=== PATIENT | female | born 1940 | race Caucasian/White ===

== ENCOUNTER → 2018-04-14 09:55 | Outpatient (POV) | payer MEDICARE, OTHER, SELFPAY ==
[2018-04-14 10:12] VITALS: BP 121/64; PULSE 58; RESP 18; O2SAT 98
--- NOTE | 2018-04-14 10:48 | XR_ITS ---
XR knee LT 3V HISTORY: ITS.REASON: LT KNEE PAIN ORDERING PHYSICIAN: Rere Castellanos PATIENT AGE: 77 years COMPARISON: None FINDINGS: No fracture or dislocation. No lytic or blastic change. Normal mineralization. No significant arthritic changes evident. No other significant findings IMPRESSION: Negative Knee
--- NOTE | 2018-04-14 12:48 | HMH.PMCON ---
Assessment and Plan (1) Left knee pain Current visit: Yes Status: Chronic Category: Medical Code(s): M25.562 - Pain in left knee - Assessment and plan all Dx Assessment and Plan for all problems:: We will order an x-ray of her left knee to discern pathology. We will also set her up for left knee injection. Patient is to continue her anti-inflammatories until her injection. I told the patient that she was welcome to go back to work as long as she takes it easy and does not over exert herself. Patient is to avoid mopping and sweeping or any other motion that may increase her knee pain. I will follow-up with the patient after her injection and reassess her symptoms at that time. This note was dictated using voice recognition software and may contain errors or omissions HPI - Data of Consult Consult date: 04/14/18 Requesting Physician: Rere Castellanos APRN Primary Care Provider: Sudhakar Smith MD Family Provider: Sudhakar Smith MD - Consult Narrative Reason for consult: Knee pain History of present illness: Ms. Soto is a 77 year old female who presents for consultation in regards to her left knee pain. Patient fell at several weeks back and had an increase in her back and buttock pain however that is all resolved. Patient states that all of her pain is in her left knee. Patient does not have any x-rays of her knee we will order some. Patient states she did try a friend's knee brace however it was not very helpful for her. Patient and I discussed anti-inflammatories. Patient has not had any injections in her knee. Patient states that her pain is a 5 out of 10 today. Patient would like to return to work as soon as possible. 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 CC: Rere Castellanos APRN [facility] History I have reviewed the patient's past medical history: Yes Medical History: Reports:: Anxiety, Hypertension, Osteoporosis Other Medical History: Reports: Arthritis, Osteoporosis - *Social History Smoking Status: Never smoker Alcohol Intake: never Occupational Status: employed Housing: house - Psychiatric History Expresses thoughts of harming self/others: None Suicide Plan Description: No Plan Pschychiatric History:: Reports:: Anxiety Review of Systems - Review of Systems ROS General: no recent weight change, no fever, no sleep disturbances Respiratory: no cough, no shortness of air, no recurring pulmonary infections Cardiovascular/Peripheral Vascular: No chest pain, No palpitations, no edema, no shortness of breath. Gastrointestinal: no incontinence, normal bowel movements reported Genitourinary: no incontinence Musculoskeletal: Knee pain Psychiatric: normal mood/ affect Neurological: [denies weakness in extremities], [denies balance issues] Meds Home Medications Medication Instructions Recorded Confirmed Type ALPRAZolam [Alprazolam 0.25mg 0.25 mg PO NEEDED PRN 04/01/18 04/01/18 History Tab] Amlodipine Besylate [Amlodipine 10 mg PO DAILY 04/01/18 04/01/18 History 10mg Tab] Metoprolol Succinate 200 mg PO DAILY 04/01/18 04/01/18 History Allergies Allergy/AdvReac Type Severity Reaction Status Date / Time alendronate sodium Allergy Unknown CHEST PAIN Verified 04/01/18 06:12 [ALENDRONATE SODIUM] metoclopramide Allergy Unknown Verified 04/01/18 06:12 [METOCLOPRAMIDE] morphine [MORPHINE] Allergy Unknown I-RASH Verified 04/01/18 06:12 Objective Vital signs: Pulse Resp BP Pulse Ox 58 L 18 121/64 98 04/14/18 10:12 04/14/18 10:12 04/14/18 10:12 04/14/18 10:12 Narrative: Physical Exam General: Alert and oriented x3, no acute distress, pleasant and cooperative, [on room air] Lungs: Resps E/U, Symmetrical chest expansion, Eyes: PERRL Musculoskeletal: Range of motion left knee somewhat guarded secondary to pain, deep tendon reflexes normal, strength in upper and lower extremities [5/5], [abnormal
--- NOTE | 2018-04-14 12:52 | P.CONS_ITS ---
Assessment and Plan (1) Left knee pain Current visit: Yes Status: Chronic Category: Medical Code(s): M25.562 - Pain in left knee - Assessment and plan all Dx Assessment and Plan for all problems:: We will order an x-ray of her left knee to discern pathology. We will also set her up for left knee injection. Patient is to continue her anti-inflammatories until her injection. I told the patient that she was welcome to go back to work as long as she takes it easy and does not over exert herself. Patient is to avoid mopping and sweeping or any other motion that may increase her knee pain. I will follow-up with the patient after her injection and reassess her symptoms at that time. This note was dictated using voice recognition software and may contain errors or omissions HPI - Data of Consult Consult date: 04/14/18 Requesting Physician: Rere Castellanos APRN Primary Care Provider: Sudhakar Smith MD Family Provider: Sudhakar Smith MD - Consult Narrative Reason for consult: Knee pain History of present illness: Ms. Soto is a 77 year old female who presents for consultation in regards to her left knee pain. Patient fell at several weeks back and had an increase in her back and buttock pain however that is all resolved. Patient states that all of her pain is in her left knee. Patient does not have any x-rays of her knee we will order some. Patient states she did try a friend's knee brace however it was not very helpful for her. Patient and I discussed anti- inflammatories. Patient has not had any injections in her knee. Patient states that her pain is a 5 out of 10 today. Patient would like to return to work as soon as possible. 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 CC: Rere Castellanos APRN [facility] History I have reviewed the patient's past medical history: Yes Medical History: Reports:: Anxiety, Hypertension, Osteoporosis Other Medical History: Reports: Arthritis, Osteoporosis - *Social History Smoking Status: Never smoker Alcohol Intake: never Occupational Status: employed Housing: house - Psychiatric History Expresses thoughts of harming self/others: None Suicide Plan Description: No Plan Pschychiatric History:: Reports:: Anxiety Review of Systems - Review of Systems ROS General: no recent weight change, no fever, no sleep disturbances Respiratory: no cough, no shortness of air, no recurring pulmonary infections Cardiovascular/Peripheral Vascular: No chest pain, No palpitations, no edema, no shortness of breath. Gastrointestinal: no incontinence, normal bowel movements reported Genitourinary: no incontinence Musculoskeletal: Knee pain Psychiatric: normal mood/ affect Neurological: [denies weakness in extremities], [denies balance issues] Meds Home Medications Medication Instructions Recorded Confirmed Type ALPRAZolam [Alprazolam 0.25mg 0.25 mg PO NEEDED PRN 04/01/18 04/01/18 History Tab] Amlodipine Besylate [Amlodipine 10 mg PO DAILY 04/01/18 04/01/18 History 10mg Tab] Metoprolol Succinate 200 mg PO DAILY 04/01/18 04/01/18 History Allergies Allergy/AdvReac Type Severity Reaction Status Date / Time alendronate sodium Allergy Unknown CHEST PAIN Verified 04/01/18 06:12 [ALENDRONATE SODIUM] metoclopramide Allergy Unknown Verified 04/01/18 06:12 [METOCLOPRAMIDE] morphine [MORPHINE] Allergy Unknown I-RASH Verified 0
== END ==
PROVIDERS: Family Provider Internal Medicine Adolescent Medicine; PCP Internal Medicine Adolescent Medicine; Visit Provider Clinical Nurse Specialist Family Health
DX: M25.562 Pain in left knee (principal)
CPT/HCPCS: 73562; 99202

== ENCOUNTER 2018-04-25 12:32 | Outpatient (POV) | payer MEDICARE, OTHER, SELFPAY ==
[2018-04-25 12:52] VITALS: BP 128/64; PULSE 64; RESP 18; TEMP 37.1; O2SAT 100; BMI 21.2
--- NOTE | 2018-04-25 13:14 | HMH.PAINSOAP ---
[facility] Pain Management SOAP Note Subjective:: This patient is a pleasant 77-year-old white female who we are seeing in regards to her left knee pain. She fell several weeks ago and had some increasing back pain left buttock pain and now she has some left knee pain. She occasionally has pain in the left back and buttock area. Most of her pain is concentrated over her left knee. We did get an x-ray of the left knee which was negative for any arthritis or fracture. Given her x-ray findings I did not see a need to do an injection of her left knee. I believe she would be better served by obtaining an MRI of the left knee as well as an MRI of her lumbar spine to discern pathology. After we obtain MRI of the left knee and lumbar spine we will have her follow-up with Dr. Ernandez for evaluation. Objective:: Alert and oriented ?3 in no acute distress. Patient does have an antalgic gait. Motor strength of the lower extremities is 5/5. She does have good range of motion of left knee. She does have tenderness over the lateral aspect of her left knee. There does not seem to be any instability. Assessment:: Left knee pain Plan:: We will obtain an MRI of the left knee. She also has occasional pain of the low back and left buttock area. We will obtain an MRI of lumbar spine. Will follow up with her after these MRIs. We may have her follow-up with Dr. Ernandez depending on results of the knee MRI.
--- NOTE | 2018-04-25 14:04 | PC.NURSE ---
PT DID NOT RECEIVE AND INJECTION AT THIS VISIT, SEE NOTE.PT DISCHARGED VIA W/C AT 1320, ACCOMPANIED BY NSG STAFF AND CHIP SOTO
== END 2018-04-25 13:20 | disposition home or self-care (01) ==
PROVIDERS: Family Provider Internal Medicine Adolescent Medicine; PCP Internal Medicine Adolescent Medicine; Visit Provider Anesthesiology
DX: M25.562 Pain in left knee (principal)
CPT/HCPCS: 99212; J1040

== ENCOUNTER → 2018-05-06 12:36 | Outpatient (CLI) | payer MEDICARE, OTHER, SELFPAY ==
--- NOTE | 2018-05-06 12:40 | MR_ITS ---
MR knee LT wo con Ordering Physician: Himanshu Masters MD Patient Age: 77 years: Female HISTORY: ITS.REASON: LOW BACK PAIN, LEFT KNEE PAIN Knee pain 8 weeks pain at patella as well as medial and lateral aspect patella. Fall 2 weeks before she started to have pain. TECHNIQUE: Multiplanar multisequence imaging 1.5 the MR. COMPARISON :Plain films left knee April 14, 2018. FINDINGS PATELLOFEMORAL JOINT. There is some chondral scuffing and chondral irregularity seen at the posterior patella-both at its its midportion as well as continuing towards the medial facet. With this there is also focal osteochondral irregularity at the medial facet of patella. A focus of chondral thinning is associated with underlying bone signal abnormality measuring 8mm transverse x 7 mm depth area.. There may be some very tiny subchondral cystic features in this subchondral area as well. Small joint effusion with fluid at suprapatellar bursa.. Also Minimal fluid seen extending lateral just beneath the lateral retinaculum overlying the lateral face of the lateral femoral condyle. Noted of doubtful additional significance.. ----- Lateral Compartment & Lateral Meniscus intact. Medial Meniscus Intact. Suspect thinning of the cartilage at medial femoral condyle towards notch, sagittal slice 10 coronal 15 The ACL and PCL are intact. The medial and lateral collateral ligaments intact. Quadriceps tendon intact with upper normal signal at insertion. Patellar tendon intact. Scant edema overlying patella tendon doubt of significance. Likely dependent edema IMPRESSION 1. Cartilage irregularities posterior patella,-at its midportion and towards medial facet. Specifically note focal osteochondral irregularity/seen beneath the medial facet of patella.- Small cartilage defect with associated underlying bone signal changes beneath 2. Small joint effusion. 3. . Medial and lateral meniscus intact. Cruciates intact 4.. Medial lateral compartment fairly well-maintained Only note suspect area probable mild focal chondral thinning at medial femoral condyle- towards notch
--- NOTE | 2018-05-06 12:40 | MR_ITS ---
MR lumbar spine wo con, MR 3-d myelogram/MRCP Ordering Physician: Himanshu Masters MD Patient Age: 77 years: Female HISTORY: ITS.REASON: LOW BACK PAIN, LEFT KNEE PAIN Left leg pain and extends lateral side of buttocks to the left hip and knee. Patient states fall 2 weeks ago for pain started TECHNIQUE: Sagittal STIR, T1, T2, axial T1 and T2. On 1.5T Siemens wide bore MRI. 3-D MR myelogram image set obtained & performed on MRI workstation. Additional sagittal thin section T2 weighted dataset obtained from this latter acquisition as well (---76 CPT) COMPARISON :04/01/2018 CT abdomen pelvis, includes spine views Plain films lumbar spine 04/01/2018 FINDINGS . The vertebral body heights are maintained. . No compression fracture. No focal lesion. Subtle patchy appearance of the marrow at that of significance but could reflect anemia Conus ends appropriately at L1. L5/S1. Disc intact. Mild Facet and ligament flavum hypertrophy L4/5. 5 mm anterior positioning of L4 on 5 vertebral bodiesReflect Mild grade 1 anterolisthesis of L4 on 5. . Prominent facet hypertrophy.. These features combine to now the spinal canal. Slight tapering the spinal canal with mild central canal stenosis evident on 3-D myelogram image set. It is slightly more evident indentation upon the left aspect of thecal sac at this level. L3/4. Asymmetric disc bulge the left with additional broad-based disc protrusion at left foramen. Moderate left foraminal and recess encroachment/stenosis. Mild facet and ligament flavum hypertrophy. Features yield mild narrowing the spinal canal with borderline to mild spinal stenosis . L2/3 mild foraminal disc bulge bilaterally. Mild facet hypertrophy. The spinal canal appearance approaching Borderline spinal stenosis L1/2. Disc intact neural foramen widely patent. T12/L1, T11/12 disc intact unremarkable. No foramen widely patent. 3-D MRI myelogram image set shows tapering and of the thecal sac most notable at L4/5 due to the facet hypertrophy, mild listhesis and trace disc bulge. That there is some slight narrowing the spinal canal IMPRESSION: ---- . Developing degenerative changes lumbar spine L3/4. Disc bulge, with Additional Disc Protrusion at the Left Foramen,.. along with mild facet hypertrophy- Yields generous encroachment at left recess and left foramen. L4/5. Mild degenerative listhesis with prominent facet hypertrophy... Features yield mild central canal stenosis, with mild/moderate bilateral foraminal encroachment; and mild central canal stenosis L2/3. Bilateral foraminal disc bulge with mild bilateral foraminal encroachment. Slight tapering of thecal sac with appearance approaching Borderline central canal stenosis at L2/3 and L3/4 .
== END ==
PROVIDERS: Family Provider Internal Medicine Adolescent Medicine; PCP Internal Medicine Adolescent Medicine; Visit Provider Anesthesiology
DX: M54.5 Low back pain (principal); M25.562 Pain in left knee
CPT/HCPCS: 72148; 73721; 76376

== ENCOUNTER → 2018-05-19 09:13 | Outpatient (POV) | payer MEDICARE, OTHER, SELFPAY ==
[2018-05-19 09:24] VITALS: BP 152/59; PULSE 58; RESP 18; O2SAT 98; BMI 20.9
--- NOTE | 2018-05-19 09:32 | HMH.PAINSOAP ---
[facility] Pain Management SOAP Note Subjective:: Patient is a pleasant 77-year-old white female who presents today for follow-up after recent MRI of left knee and low back. Patient's MRI shows a small joint effusion in her left knee along with some cartilage irregularities. Patient also has MRI of lumbar back showing degenerative disc changes. Patient states she has 0 pain today. Patient's been taking ibuprofen. Patient was taken off ibuprofen due to kidney issues in the past. I discussed with her decreasing her dose at this time. Patient would like to follow-up on an as-needed basis. ROS General: no recent weight change, no fever, no sleep disturbances Respiratory: no cough, no shortness of air, no recurring pulmonary infections Cardiovascular/Peripheral Vascular: No chest pain, No palpitations, no edema, no shortness of breath. Gastrointestinal: no incontinence, normal bowel movements reported Genitourinary: no incontinence Musculoskeletal: Knee pain at times Psychiatric: normal mood/ affect Neurological: [denies weakness in extremities], [denies balance issues] Objective:: Physical Exam General: Alert and oriented x3, no acute distress, pleasant and cooperative, [on room air] Lungs: Resps E/U, Symmetrical chest expansion, Eyes: PERRL Musculoskeletal: Flexion and extension of lumbar spine somewhat guarded secondary to pain, deep tendon reflexes normal, strength in upper and lower extremities [5/5], slightly antalgic gait noted Neurological: speech clear, adventure education teacher equal, no gross sensory deficits Assessment:: Degenerative disc disease lumbar spine with lumbar radiculopathy, left knee pain Plan:: We will follow-up with this patient on an as-needed basis. This note was dictated using voice recognition software and may contain errors or omissions
--- NOTE | 2018-05-19 09:36 | P.CONS_ITS ---
[facility] Pain Management SOAP Note Subjective:: Patient is a pleasant 77-year-old white female who presents today for follow-up after recent MRI of left knee and low back. Patient's MRI shows a small joint effusion in her left knee along with some cartilage irregularities. Patient also has MRI of lumbar back showing degenerative disc changes. Patient states she has 0 pain today. Patient's been taking ibuprofen. Patient was taken off ibuprofen due to kidney issues in the past. I discussed with her decreasing her dose at this time. Patient would like to follow-up on an as-needed basis. ROS General: no recent weight change, no fever, no sleep disturbances Respiratory: no cough, no shortness of air, no recurring pulmonary infections Cardiovascular/Peripheral Vascular: No chest pain, No palpitations, no edema, no shortness of breath. Gastrointestinal: no incontinence, normal bowel movements reported Genitourinary: no incontinence Musculoskeletal: Knee pain at times Psychiatric: normal mood/ affect Neurological: [denies weakness in extremities], [denies balance issues] Objective:: Physical Exam General: Alert and oriented x3, no acute distress, pleasant and cooperative, [ on room air] Lungs: Resps E/U, Symmetrical chest expansion, Eyes: PERRL Musculoskeletal: Flexion and extension of lumbar spine somewhat guarded secondary to pain, deep tendon reflexes normal, strength in upper and lower extremities [5/5], slightly antalgic gait noted Neurological: speech clear, hop separator equal, no gross sensory deficits Assessment:: Degenerative disc disease lumbar spine with lumbar radiculopathy, left knee pain Plan:: We will follow-up with this patient on an as-needed basis. This note was dictated using voice recognition software and may contain errors or omissions
== END ==
PROVIDERS: Family Provider Internal Medicine Adolescent Medicine; PCP Internal Medicine Adolescent Medicine; Visit Provider Clinical Nurse Specialist Family Health
DX: M25.562 Pain in left knee (principal); M54.16 Radiculopathy, lumbar region
CPT/HCPCS: 99212

== ENCOUNTER → 2021-01-09 12:35 | Outpatient (CLI) | payer MEDICARE, OTHER, SELFPAY ==
[2021-01-09 14:25] LABS: Intact Parathyroid Hormone 31.6 pg/mL (7.5-53.5)
== END ==
PROVIDERS: Visit Provider Internal Medicine Adolescent Medicine
DX: E21.5 Disorder of parathyroid gland, unspecified (principal)
CPT/HCPCS: 36415; 83970

== ENCOUNTER → 2021-04-04 19:28 | Outpatient (CLI) | payer MEDICARE, OTHER, SELFPAY ==
[2021-04-04 20:20] LABS: Basophils # 0.1 K/mm3 (0-0.2); Eosinophils # 0.1 K/mm3 (0.0-0.4); Eosinophils % 1.6 % (0.1-12.0); Hematocrit 39.7 % (37.0-47.0); Hemoglobin 13.3 g/dL (12.2-16.2); Lymphocytes # 1.3 K/mm3 (0.7-4.5); Lymphocytes % 21.2 % (10-50); Mean Corpuscular HGB Conc 33.4 g/dL (31.8-35.4); Mean Corpuscular Hemoglobin 30.3 pg (27.0-31.2); Mean Corpuscular Volume 90.7 fl (81-99); Mean Platelet Volume 11.3 fl (7.4-10.4); Monocytes # 0.4 K/mm3 (0.1-1.0); Monocytes % 7.2 % (1.7-9.3); Neutrophils # 4.2 K/mm3 (1.8-7.8); Platelet Count 248 K/mm3 (142-424); Red Blood Count 4.38 M/mm3 (4.20-5.40); Red Cell Distribution Width 13.6 % (11.5-17.5)
[2021-04-04 21:18] LABS: 25-OH Vitamin D, Total 40.3 ng/mL (30-100)
[2021-04-04 22:10] LABS: Chloride 103 mmol/L (98-107); Sodium 140 mmol/L (136-145)
[2021-04-04 22:11] LABS: Potassium 4.5 mmoL/L (3.5-5.1)
[2021-04-04 22:13] LABS: Alanine Aminotransferase 14 U/L (12-78); Albumin Level 4.6 g/dl (3.5-5.0); Albumin/Globulin Ratio 1.7 (1.1-1.8); Alkaline Phosphatase 64 U/L (38-126); Amylase 66 U/L (30-110); Anion Gap 16.5 mEq/L (5-15); Aspartate Amino Transferase 31 U/L (14-36); Bilirubin,Total 0.8 mg/dl (0.2-1.3); Blood Urea Nitrogen 19 mg/dl (7-17); Calcium 10.1 mg/dl (8.4-10.2); Carbon Dioxide 25 mmol/L (22.0-30.0); Cholesterol 196 mg/dl (140-200); Estimated Glomerular Filt Rate 60 ml/min (>60); GFR (African American) 73 ML/MIN (>60); Globulin 2.7 g/dL (1.3-3.2); Glucose 51 mg/dl (74-100); HDL Cholesterol 65 mg/dl (40-60); Total Protein,Serum 7.3 g/dl (6.3-8.2); Triglycerides 120 mg/dl (30-150); VLDL Cholesterol 24 mg/dL (0-40)
[2021-04-04 22:25] LABS: Direct LDL Cholesterol 100.13 mg/dL (100-129)
== END ==
PROVIDERS: Visit Provider Internal Medicine Adolescent Medicine
DX: K86.1 Other chronic pancreatitis (principal); E78.5 Hyperlipidemia, unspecified; M81.0 Age-related osteoporosis without current pathological fracture
CPT/HCPCS: 80053; 80061; 82150; 82306; 85025

== ENCOUNTER → 2021-05-26 16:55 | Outpatient (CLI) | payer MEDICARE, OTHER, SELFPAY ==
--- NOTE | 2021-05-26 16:58 | MR_ITS ---
PROCEDURE INFORMATION: Exam: MR Head Without Contrast Exam date and time: 05/26/2021 4:58 PM Age: 80 years old Clinical indication: Pain; Headache; Additional info: Right facial pain. RT sided facial pain on and off x1yr. Dizziness. No prior. TECHNIQUE: Imaging protocol: MR of the head without contrast. COMPARISON: No relevant prior studies available. FINDINGS: Brain: A few tiny FLAIR signal abnormalities are seen in the white matter. These are typical for age and of doubtful clinical significance. No mass or mass effect. No evidence of infarction. Cerebral ventricles: Normal. No ventriculomegaly. Bones/joints: Unremarkable. Paranasal sinuses: Normal as visualized. No acute sinusitis. Mastoid air cells: Normal as visualized. No mastoid effusion. Orbital cavity: Unremarkable. Soft tissues: Unremarkable. IMPRESSION: No acute intracranial pathology. No findings to explain the patient's symptoms.
== END ==
PROVIDERS: PCP Internal Medicine Adolescent Medicine; Visit Provider Internal Medicine Adolescent Medicine
DX: R51.9 Headache, unspecified (principal)
CPT/HCPCS: 70551

== ENCOUNTER → 2021-09-12 19:40 | Outpatient (CLI) | payer MEDICARE, OTHER, SELFPAY ==
[2021-09-12 20:04] LABS: Basophils % 0.9 % (0.1-2.0); Eosinophils # 0.1 K/mm3 (0.0-0.4); Eosinophils % 1.8 % (0.1-12.0); Hemoglobin 12.9 g/dL (12.2-16.2); Lymphocytes # 0.8 K/mm3 (0.7-4.5); Lymphocytes % 19.8 % (10-50); Mean Corpuscular Hemoglobin 31.3 pg (27.0-31.2); Mean Corpuscular Volume 92.3 fl (81-99); Mean Platelet Volume 11.7 fl (7.4-10.4); Monocytes # 0.4 K/mm3 (0.1-1.0); Monocytes % 8.8 % (1.7-9.3); Neutrophils # 2.9 K/mm3 (1.8-7.8); Neutrophils % 68.7 % (37.0-80.0); Platelet Count 256 K/mm3 (142-424); Red Blood Count 4.12 M/mm3 (4.20-5.40); Red Cell Distribution Width 13.5 % (11.5-17.5); White Blood Count 4.2 K/mm3 (4.8-10.8)
[2021-09-12 20:44] LABS: Alanine Aminotransferase 7 U/L (12-78); Albumin/Globulin Ratio 1.5 (1.1-1.8); Alkaline Phosphatase 60 U/L (38-126); Anion Gap 7.4 mEq/L (5-15); Aspartate Amino Transferase 25 U/L (14-36); Bilirubin,Total 0.4 mg/dl (0.2-1.3); Blood Urea Nitrogen 14 mg/dl (7-17); Calcium 9.7 mg/dl (8.4-10.2); Carbamazepine (Tegretol) 7.2 ug/ml (4.0-12.0); Carbon Dioxide 31 mmol/L (22.0-30.0); Chloride 101 mmol/L (98-107); Cholesterol 204 mg/dl (140-200); Estimated Glomerular Filt Rate 80 ml/min (>60); GFR (African American) 97 ML/MIN (>60); Globulin 2.6 g/dL (1.3-3.2); Glucose 92 mg/dl (74-100); HDL Cholesterol 68 mg/dl (40-60); Potassium 4.4 mmoL/L (3.5-5.1); Sodium 135 mmol/L (136-145); Total Protein,Serum 6.6 g/dl (6.3-8.2); Triglycerides 125 mg/dl (30-150); VLDL Cholesterol 25 mg/dL (0-40)
[2021-09-12 20:53] LABS: Direct LDL Cholesterol 108.65 mg/dL (100-129)
== END ==
PROVIDERS: Visit Provider Internal Medicine Adolescent Medicine
DX: E78.5 Hyperlipidemia, unspecified (principal); G50.0 Trigeminal neuralgia; Z79.899 Other long term (current) drug therapy
CPT/HCPCS: 80053; 80061; 80156; 85025

== ENCOUNTER → 2022-09-28 10:28 | Outpatient (CLI) | payer MEDICARE, OTHER, SELFPAY | PROVIDERS: PCP Nurse Practitioner Family; Visit Provider Nurse Practitioner Family | DX: U07.1 COVID-19 (principal) | CPT/HCPCS: C9803; U0003; U0005 ==

== ENCOUNTER → 2022-11-08 07:20 | Outpatient (CLI) | payer MEDICARE, OTHER, SELFPAY ==
[2022-11-08 17:25] LABS: Alanine Aminotransferase 18 U/L (12-78); Albumin Level 4.3 g/dl (3.5-5.0); Anion Gap 8.4 mEq/L (5-15); Aspartate Amino Transferase 29 U/L (14-36); Bilirubin,Total 0.7 mg/dl (0.2-1.3); Blood Urea Nitrogen 15 mg/dl (7-17); Calcium 9.4 mg/dl (8.4-10.2); Carbon Dioxide 29 mmol/L (22.0-30.0); Chloride 107 mmol/L (98-107); Estimated Glomerular Filt Rate 80 ml/min (>60); GFR (African American) 97 ML/MIN (>60); Globulin 2.6 g/dL (1.3-3.2); Glucose 85 mg/dl (74-100); Potassium 4.4 mmoL/L (3.5-5.1); Sodium 140 mmol/L (136-145); Total Protein,Serum 6.9 g/dl (6.3-8.2)
[2022-11-08 17:26] LABS: Albumin/Globulin Ratio 1.7 (1.1-1.8); Alkaline Phosphatase 85 U/L (38-126)
[2022-11-08 17:32] LABS: Basophils # 0.1 K/mm3 (0-0.2); Basophils % 1.2 % (0.1-2.0); Eosinophils # 0.1 K/mm3 (0.0-0.4); Eosinophils % 2.5 % (0.1-12.0); Hematocrit 40.4 % (37.0-47.0); Hemoglobin 13.2 g/dL (12.2-16.2); Lymphocytes # 1.5 K/mm3 (0.7-4.5); Lymphocytes % 26.2 % (10-50); Mean Corpuscular HGB Conc 32.6 g/dL (31.8-35.4); Mean Corpuscular Hemoglobin 30.7 pg (27.0-31.2); Mean Corpuscular Volume 94.1 fl (81-99); Mean Platelet Volume 10.3 fl (7.4-10.4); Monocytes # 0.4 K/mm3 (0.1-1.0); Monocytes % 7.6 % (1.7-9.3); Neutrophils # 3.7 K/mm3 (1.8-7.8); Neutrophils % 62.6 % (37.0-80.0); Platelet Count 277 K/mm3 (142-424); Red Blood Count 4.29 M/mm3 (4.20-5.40); Red Cell Distribution Width 13.7 % (11.5-17.5); White Blood Count 5.9 K/mm3 (4.8-10.8)
[2022-11-08 17:43] LABS: 25-OH Vitamin D, Total 30.2 ng/mL (30-100)
[2022-11-08 18:24] LABS: Vitamin B12 > 1000 pg/mL (239-931)
== END ==
PROVIDERS: PCP Nurse Practitioner Family; Visit Provider Nurse Practitioner Family
DX: I10 Essential (primary) hypertension (principal); E55.9 Vitamin D deficiency, unspecified; E53.8 Deficiency of other specified B group vitamins
CPT/HCPCS: 80053; 82306; 82607; 85025

== ENCOUNTER 2023-11-08 09:54 | Emergency (ER) | payer MEDICARE, OTHER, SELFPAY ==
[2023-11-08 09:55] VITALS: BP 137/70; PULSE 71; RESP 16; TEMP 36.6; O2SAT 98; BMI 22.3
[2023-11-08 10:29] LABS: Adenovirus F 40/41, stool Not Detected (NotDetected); Astrovirus Not Detected (NotDetected); Campylobacter Not Detected (NotDetected); Clostridium Difficile A/B, PCR Not Detected (NotDetected); Cryptosporidium Not Detected (NotDetected); Cyclospora Cayetanesis Not Detected (NotDetected); Entamoeba histolytica Not Detected (NotDetected); Enteroaggregative E coli Not Detected (NotDetected); Enteropathogenic E coli Not Detected (NotDetected); Enterotoxigenic E coli Not Detected (NotDetected); Giardia lamblia Not Detected (NotDetected); Plesimonas Shigalloides, PCR Not Detected (NotDetected); Rotavirus A Not Detected (NotDetected); Salmonella, PCR Not Detected (NotDetected); Shiga-like toxin E coli Not Detected (NotDetected); Shigella Enterovasive E coli Not Detected (NotDetected); Vibrio Cholerae Not Detected (NotDetected); Vibrio, PCR Not Detected (NotDetected); Yersinia Entercolitica, PCR Not Detected (NotDetected)
[2023-11-08 10:35] LABS: Occult Blood,Stool Negative (Negative)
[2023-11-08 10:42] LABS: Basophils % 0.6 % (0.1-2.0); Eosinophils # 0.1 K/mm3 (0.0-0.4); Eosinophils % 1.8 % (0.1-12.0); Hematocrit 40.4 % (37.0-47.0); Hemoglobin 13.6 g/dL (12.2-16.2); Lymphocytes # 0.8 K/mm3 (0.7-4.5); Lymphocytes % 15.5 % (10-50); Mean Corpuscular HGB Conc 33.7 g/dL (31.8-35.4); Mean Corpuscular Hemoglobin 31.3 pg (27.0-31.2); Mean Platelet Volume 8.2 fl (7.4-10.4); Monocytes # 0.3 K/mm3 (0.1-1.0); Monocytes % 6.4 % (1.7-9.3); Neutrophils # 3.8 K/mm3 (1.8-7.8); Neutrophils % 75.7 % (37.0-80.0); Platelet Count 211 K/mm3 (142-424); Red Blood Count 4.35 M/mm3 (4.20-5.40)
--- NOTE | 2023-11-08 10:46 | ED_ITS ---
Discharge Plan Disposition Patient Disposition: Home, Self-Care Chief Complaint: Nausea/Vomiting/Diarrhea Prescriptions Prescriptions: No Action gabapentin 300 mg capsule 300 mg PO QID potassium citrate 99 mg capsule PO DAILY cyanocobalamin (vitamin B-12) 1,000 mcg tablet 1,000 mcg PO DAILY aspirin 81 mg tablet,delayed release (DR/EC) 81 mg PO DAILY alprazolam 0.5 mg tablet 0.5 mg PO TID meloxicam 7.5 mg tablet 7.5 mg PO DAILY Qty: 30 2RF metoprolol succinate 200 mg tablet extended release 24 hr See Rx Instructions .ROUTE .COMPLEX Qty: 90 3RF Dose Instruction: TAKE 1 TABLET BY MOUTH ONCE DAILY Rx Instructions: TAKE 1 TABLET BY MOUTH ONCE DAILY amlodipine 10 mg tablet See Rx Instructions .ROUTE .COMPLEX Qty: 90 1RF Dose Instruction: TAKE 1 TABLET BY MOUTH ONCE DAILY Rx Instructions: TAKE 1 TABLET BY MOUTH ONCE DAILY Referrals Follow up/Referrals: Tommie Alcaraz MD [Primary Care Provider] - See instructions Activity Restrictions/Add. Instructions Additional Instructions/Restrictions: Call your family doctor to establish care for this visit to the emergency department and schedule follow-up within 48 hours to ensure improvement. If you have any worsening of your condition or any other concerning signs or symptoms, return to the emergency department or your primary care doctor for further evaluation. Clinical Impressions Clinical Impression: Medication side effect Diarrhea Qualifiers: Diarrhea type: infectious Qualified Code(s): A09 - Infectious gastroenteritis and colitis, unspecified Instructions Patient Instructions: DI for Diarrhea and Traveler's Diarrhea -- Adult, DI for Diarrhea and Traveler's Diarrhea -- Child, DI for Nausea -- Adult, DI for Nausea -- Child Discharge ED Provider: Jb Miller General Adult HPI General Chief complaint: Nausea/Vomiting/Diarrhea Stated complaint: diarrea, black stool, Time Seen by Provider: 11/08/23 09:56 Mode of Arrival: Ambulatory Source of Information: Patient Limitations: No Limitations Description of Symptoms (Recalled from ER Triage Doc. by RN): Patient's daughter states the patient was sent by Dr. Alcaraz's office related to diarrhea for 24 hours. States that the patient's stool has turned a dark color and has been mostly liquid. History of Present Illness HPI narrative: 83-year-old female history of hypertension, essential tremor, CAD on daily aspirin presenting with dark stools. Patient states that she has had a virus for the last few days. Because she was having GI upset, started taking Pepto- Bismol yesterday, 11/07. Since taking the Pepto-Bismol in large doses, she started having black stools alongside her diarrhea. Called family doctor and family doctor recommended they come to the emergency department for further evaluation given it is Saturday and the weekend will be an impediment to receiving results. Patient having no other symptoms. Related Data Home Medications Medication Instructions Recorded Confirmed aspirin 81 mg tablet,delayed 81 mg PO DAILY 08/15/22 07/01/23 release cyanocobalamin (vitamin B-12) 1,000 mcg PO DAILY 08/15/22 07/01/23 1,000 mcg tablet gabapentin 300 mg capsule 300 mg PO QID 08/15/22 07/01/23 potassium citrate 99 mg capsule mg PO DAILY 08/15/22 07/01/23 alprazolam 0.5 mg tablet 0.5 mg PO TID anxiety 07/01/23 07/01/23 Previous Rx's Medication Instructions Recorded metoprolol succinate 200 mg See Rx Instructions .Route 04/25/23 tablet,extended release 24 hr .COMPLEX #90 tabs meloxicam 7.5 mg tablet 7.5 mg PO DAILY #30 tabs 07/01/23 amlodipine 10 mg tablet See Rx Instructions .Route 10/15/23 .COMPLEX #90 tabs Allergies Allergy/AdvReac Type Severity Reaction Status Date / Time alendronate sodium Allergy Unknown CHEST PAIN Verified 07/01/23 14:37 [ALENDRONATE SODIUM] metoclopramide Allergy Unknown Verified 07/01/23 14:37 [METOCLOPRAMIDE] morphine [MORPHINE] Allergy Unknown I-RASH Verified 07/01/23 14:37 [facility] Disclaimer: The information contained in this section may have been updated after the patient was seen, as this information can be updated by other users. Medical History Hypertension Impacted cerumen of right ear Neuropathy Surgical History H/O hernia repair History of cholecystectomy Family History Mother Hypertension Coronary artery disease AAA (abdominal aortic aneurysm) Father Hypertension Coronary artery disease Social History Smoking Status: Never smoker alcohol intake: never current occupational status: employed Travel in the last 8 weeks: None housing: house current occupational exposures/hazards: No caffeine: Yes ROS Obtained: Yes All systems reviewed & no additional complaints except as documented Physical Exam General General appearance: alert and in no apparent distress Head Head exam: atraumatic and normocephalic Eye Eye exam: Present normal appearance, PERRL and EOMI ENT ENT exam: Present mucous membranes moist Neck Neck exam: Present normal inspection, full ROM and trachea midline Respiratory Respiratory exam: Absent respiratory distress, wheezes, stridor, accessory muscle use or prolonged expiratory phase Cardiovascular Cardiovascular exam: Present normal rhythm Abdominal Exam Abdominal exam: Present soft; Absent distention, tenderness, guarding, rebound or rigidity Extremities Exam Extremities exam: Absent edema Neurological Exam Neurological exam: Present alert, oriented X3, CN II-XII intact and normal gait; Absent motor sensory deficit Skin Skin exam: Present warm and dry; Absent diaphoresis or erythema Medical Decision Making Medical Records Medical records reviewed: Yes I reviewed the patient's medical records. Aj Inquiry Pt receiving controlled substance: No Aj was queried for this patient: No Vital Signs: 11/08/23 09:55 11/08/23 11:00 Temperature 97.9 F Temperature Source Oral Pulse Rate 61 Pulse Rate [Radial] 71 Respiratory Rate 16 Blood Pressure 102/64 L Blood Pressure [Right Arm] 137/70 Blood Pressure Mean 76 Blood Pressure Mean [Right Arm] 92 Blood Pressure Source [Right Arm] Automatic Cuff Blood Pressure Position [Right Arm] Sitting 02 Sat by Pulse Oximetry 98 95 Oxygen Delivery Method Room Air Lab Data Lab Results 11/08/23 10:09: Stool Occult Blood Negative 11/08/23 10:36: WBC 5.0, RBC 4.35, Hgb 13.6, Hct 40.4, MCV 93.0, MCH 31.3 H, MCHC 33.7, RDW 14.0, Plt Count 211, MPV 8.2, Neut % (Auto) 75.7, Lymph % (Auto) 15.5, [place] % (Auto) 6.4, Eos % (Auto) 1.8, Baso % (Auto) 0.6, Neut # (Auto) 3.8, Lymph # (Auto) 0.8, [place] # (Auto) 0.3, Eos # (Auto) 0.1, Baso # (Auto) 0.0, Sodium 139, Potassium 3.8, Chloride 107, Carbon Dioxide 23, Anion Gap 12.8, BUN 14, Creatinine 0.80, Estimated Creat Clear 41, Estimated GFR 69, Est GFR ( Amer) 83, Glucose 91, Calcium 9.3, Total Bilirubin 0.4, AST 39 H, ALT 30, Alkaline Phosphatase 77, Total Protein 6.8, Albumin 4.1, Globulin 2.7, Albumin/Globulin Ratio 1.5 11/08/23 10:36 11/08/23 10:36 Orders (Tests/Meds): ORDERS Category Date Time Status CBC w/Auto Diff [Complete Blood Count Auto Diff] Stat Lab 11/08/23 10:36 Completed CMP [Comprehensive Metabolic Panel] Stat Lab 11/08/23 10:36 Completed Diarrhea 23 Panel, PCR Stat Lab 11/08/23 10:09 Received Occult Blood,Stool Stat Lab 11/08/23 10:09 Completed Medical Decision Narrative: 83-year-old female history of hypertension, essential tremor, CAD on daily asp irin, past history of gallstone pancreatitis status postcholecystectomy presenting with dark stools. Patient states that she has had a virus for the last few days. Because she was having GI upset, started taking Pepto-Bismol yesterday, 11/07. Since taking the Pepto-Bismol in large doses, she started having black stools alongside her diarrhea. Called family doctor and family doctor recommended they come to the emergency department for further evaluation given it is Saturday and the weekend will be an impediment to receiving results. Patient having no other symptoms. History was obtained via conversation with patient and daughter. On arrival, patient hemodynamically stable, alert, oriented x4, appropriate, GCS 15, moving all extremities spontaneously, pupils equal and reactive to light. Full physical exam performed and significant for well-appearing woman in no acute distress. Tremulous at rest. Nontachycardic, normotensive. Abdomen is soft, nontender, nondistended. No complaints at this time. Stool is dark, watery. Differential includes medication side effect, viral syndrome, upper GI bleed, lower GI bleed, among others. Workup independently interpreted and significant for negative occult blood in the stool. CBC or chemistry. Abdominal imaging was considered, but deemed unnecessary due to negative occult blood and hemodynamically stable patient. On reevaluation, patient resting comfortably bed. Given patient presentation, workup, history, this most likely represents infectious diarrhea, likely viral and medication nasrin effect. Because patient at baseline without signs or symptoms of clinical decompensation, deemed appropriate for discharge. Results were relayed to patient who voiced understanding and were agreeable to outpatient management and follow up. At the time of discharge the patient was hemodynamically stable, tolerating PO, and mobilizing appropriately. Critical Care Critical Care Time Critical Care Time: No
[2023-11-08 10:55] LABS: Alanine Aminotransferase 30 U/L (12-78); Albumin Level 4.1 g/dl (3.5-5.0); Albumin/Globulin Ratio 1.5 (1.1-1.8); Alkaline Phosphatase 77 U/L (38-126); Anion Gap 12.8 mEq/L (5-15); Aspartate Amino Transferase 39 U/L (14-36); Bilirubin,Total 0.4 mg/dl (0.2-1.3); Blood Urea Nitrogen 14 mg/dl (7-17); Calcium 9.3 mg/dl (8.4-10.2); Carbon Dioxide 23 mmol/L (22.0-30.0); Chloride 107 mmol/L (98-107); Creatinine Clearance Estimated 41 mL/min (50-200); Estimated Glomerular Filt Rate 69 ml/min (>60); GFR (African American) 83 ML/MIN (>60); Globulin 2.7 g/dL (1.3-3.2); Glucose 91 mg/dl (74-100); Potassium 3.8 mmoL/L (3.5-5.1); Sodium 139 mmol/L (136-145); Total Protein,Serum 6.8 g/dl (6.3-8.2)
[2023-11-08 11:00] VITALS: BP 102/64; PULSE 61; O2SAT 95
[2023-11-08 11:34] VITALS: BP 102/64; PULSE 60; RESP 16; TEMP 36.6; O2SAT 98
[2023-11-11 06:55] LABS: Sapovirus Not Detected (NotDetected)
[2023-11-11 06:57] LABS: Norovirus Detected (NotDetected)
== END 2023-11-08 11:38 | disposition home or self-care (01) ==
PROVIDERS: Emergency Provider Emergency Medicine; PCP Family Medicine
DX: A09 Infectious gastroenteritis and colitis, unspecified (principal); K92.1 Melena; I10 Essential (primary) hypertension; I25.10 Atherosclerotic heart disease of native coronary artery without angina pectoris; G62.9 Polyneuropathy, unspecified; Z79.82 Long term (current) use of aspirin
CPT/HCPCS: 80053; 82272; 85025; 87507; 99284; G0328

== ENCOUNTER 2024-01-07 20:24 | Outpatient (CLI) | payer MEDICARE, OTHER, SELFPAY ==
[2024-01-07 17:59] LABS: Basophils # 0.1 K/mm3 (0-0.2); Basophils % 1.8 % (0.1-2.0); Eosinophils # 0.1 K/mm3 (0.0-0.4); Eosinophils % 3.5 % (0.1-12.0); Hematocrit 40.7 % (37.0-47.0); Hemoglobin 13.4 g/dL (12.2-16.2); Lymphocytes # 1.2 K/mm3 (0.7-4.5); Lymphocytes % 29.7 % (10-50); Mean Corpuscular Hemoglobin 32.1 pg (27.0-31.2); Mean Corpuscular Volume 97.4 fl (81-99); Mean Platelet Volume 10.9 fl (7.4-10.4); Monocytes # 0.4 K/mm3 (0.1-1.0); Monocytes % 8.5 % (1.7-9.3); Neutrophils # 2.3 K/mm3 (1.8-7.8); Neutrophils % 56.4 % (37.0-80.0); Platelet Count 233 K/mm3 (142-424); Red Blood Count 4.17 M/mm3 (4.20-5.40); Red Cell Distribution Width 14.5 % (11.5-17.5); White Blood Count 4.1 K/mm3 (4.8-10.8)
[2024-01-07 18:45] LABS: Chloride 109 mmol/L (98-107)
[2024-01-07 18:46] LABS: Potassium 4.2 mmoL/L (3.5-5.1); Sodium 140 mmol/L (136-145)
[2024-01-07 18:48] LABS: Alanine Aminotransferase 21 U/L (12-78); Alkaline Phosphatase 77 U/L (38-126); Anion Gap 8.2 mEq/L (5-15); Aspartate Amino Transferase 31 U/L (14-36); Blood Urea Nitrogen 18 mg/dl (7-17); Carbon Dioxide 27 mmol/L (22.0-30.0); Cholesterol 229 mg/dl (140-200); Estimated Glomerular Filt Rate 80 ml/min (>60); GFR (African American) 97 ML/MIN (>60); Triglycerides 113 mg/dl (30-150); VLDL Cholesterol 23 mg/dL (0-40)
[2024-01-07 18:49] LABS: Albumin Level 4.2 g/dl (3.5-5.0); Albumin/Globulin Ratio 1.6 (1.1-1.8); Calcium 9.9 mg/dl (8.4-10.2); Chol/HDL Ratio 3.7 (1-3.5); Globulin 2.7 g/dL (1.3-3.2); Glucose 91 mg/dl (74-100); HDL Cholesterol 62 mg/dl (40-60); Total Protein,Serum 6.9 g/dl (6.3-8.2)
[2024-01-07 19:00] LABS: Direct LDL Cholesterol 110.53 mg/dL (100-129)
[2024-01-07 19:20] LABS: Thyroid Stimulating Hormone 1.87 uIU/mL (0.465-4.68)
== END 2024-01-07 23:59 ==
LOC: LAB.DROPOF 20:25
PROVIDERS: PCP Family Medicine; Visit Provider Family Medicine
DX: I10 Essential (primary) hypertension (principal)
CPT/HCPCS: 80053; 80061; 84443; 85025

== ENCOUNTER 2024-06-24 21:20 | Observation (INO) | payer MEDICARE, OTHER, SELFPAY ==
[2024-06-24 21:21] VITALS: BP 132/71; PULSE 56; RESP 20; TEMP 36.9; O2SAT 97; BMI 22.4
--- NOTE | 2024-06-24 21:43 | CT_ITS ---
PROCEDURE INFORMATION: Exam: CT Head Without Contrast Exam date and time: 06/24/2024 10:02 PM Age: 83 years old Clinical indication: Altered mental status/memory loss; Additional info: AMS TECHNIQUE: Imaging protocol: Computed tomography of the head without contrast. Radiation optimization: All CT scans at this facility use at least one of these dose optimization techniques: automated exposure control; mA and/or kV adjustment per patient size (includes targeted exams where dose is matched to clinical indication); or iterative reconstruction. COMPARISON: MR HEAD/BRAIN WO CON 05/26/2021 5:10 PM FINDINGS: Brain: There is age related atrophy. No hemorrhage. Unremarkable white matter. No mass effect. Cerebral ventricles: Ventricular enlargement secondary to parenchymal atrophy. Paranasal sinuses: Visualized sinuses are unremarkable. No fluid levels. Mastoid air cells: Visualized mastoid air cells are well aerated. Orbital cavities: There has been bilateral lens extraction. Bones: Unremarkable. No acute fracture. Soft tissues: Unremarkable. IMPRESSION: No acute intracranial abnormality.
[2024-06-24 21:56] LABS: Basophils # 0.1 K/mm3 (0-0.2); Basophils % 1.9 % (0.1-2.0); Eosinophils # 0.1 K/mm3 (0.0-0.4); Eosinophils % 3.1 % (0.1-12.0); Hematocrit 41.7 % (37.0-47.0); Lymphocytes # 1.8 K/mm3 (0.7-4.5); Lymphocytes % 42.8 % (10-50); Mean Corpuscular HGB Conc 31.3 g/dL (31.8-35.4); Mean Corpuscular Hemoglobin 30.9 pg (27.0-31.2); Mean Corpuscular Volume 98.9 fl (81-99); Mean Platelet Volume 8.9 fl (7.4-10.4); Monocytes # 0.3 K/mm3 (0.1-1.0); Monocytes % 7.9 % (1.7-9.3); Neutrophils # 1.9 K/mm3 (1.8-7.8); Neutrophils % 44.4 % (37.0-80.0); Platelet Count 269 K/mm3 (142-424); Red Blood Count 4.21 M/mm3 (4.20-5.40); Red Cell Distribution Width 13.4 % (11.5-17.5); White Blood Count 4.2 K/mm3 (4.8-10.8)
[2024-06-24 22:00] VITALS: BP 120/68; PULSE 62; RESP 16; O2SAT 95
--- NOTE | 2024-06-24 22:05 | HMH.EDGENADL ---
Discharge Plan Disposition Patient Disposition: Admitted Condition: Fair Prescriptions Prescriptions: No Action gabapentin 300 mg capsule 300 mg PO QID cyanocobalamin (vitamin B-12) 1,000 mcg tablet 1,000 mcg PO DAILY aspirin 81 mg tablet,delayed release (DR/EC) 81 mg PO DAILY alprazolam 0.5 mg tablet 0.5 mg PO TID topiramate 25 mg tablet 25 mg PO [id number]-egopussfk-OR [Bromfed DM] 2-30-10 mg/5 mL syrup 10 ml PO Q4-6H PRN (Reason: cough and congestion) Qty: 118 3RF amlodipine 10 mg tablet See Rx Instructions .ROUTE .COMPLEX Qty: 90 0RF Dose Instruction: TAKE 1 TABLET BY MOUTH ONCE DAILY Rx Instructions: TAKE 1 TABLET BY MOUTH ONCE DAILY metoprolol succinate 200 mg tablet extended release 24 hr See Rx Instructions .ROUTE .COMPLEX Qty: 90 0RF Dose Instruction: TAKE 1 TABLET BY MOUTH ONCE DAILY Rx Instructions: TAKE 1 TABLET BY MOUTH ONCE DAILY Referrals Follow up/Referrals: Tommie Alcaraz MD [Primary Care Provider] - See instructions Clinical Impressions Clinical Impression: Medication side effects, AUDREY (acute kidney injury) Accidental overdose Qualifiers: Encounter type: initial encounter Qualified Code(s): T50.901A - Poisoning by unspecified drugs, medicaments and biological substances, accidental (unintentional), initial encounter Print Language Print Language: Malagasy Discharge ED Provider: Neema Pierson General Adult HPI <Neema Pierson MD - Last Filed: 06/24/24 23:15> General Chief complaint: Recheck/Abnormal Lab/Rx Stated complaint: poss took too many meds Time Seen by Provider: 06/24/24 21:27 Mode of Arrival: Wheelchair Source of Information: Patient and Relative Limitations: No Limitations Description of Symptoms (Recalled from ER Triage Doc. by RN): pt family is concerned she has accidently taken an extra dose of meds as she is acting drunk . pt was started on topamax last week for tremors/trigeminal neurolagia as well as takes gabapentin and xanax. pt family think she has been taking double dose of xanax the last 3 nights because she has an old bottle and a new bottle. pt is alert and oriented but speech is slurred. ER MD at bedside and ruled out stroke for right now based on exam History of Present Illness HPI narrative: Patient is an 83-year-old female with past medical history trigeminal neuralgia, essential tremor, hypertension presenting with concern for unintentional overdose. Her family notes that she was seen for an upper respiratory illness by her PCP on Saturday and she had thought that he prescribed her something for her cold but when they found her medications they found a new dose of Xanax and she also takes gabapentin for her tremors and trigeminal neuralgia. They note that she is acting drunk and had been very sleepy for the past 2 days and they believe that she has been doubling her dose of Xanax. They were concerned with leaving her given their concern for overdose prompting evaluation. Patient herself has no complaints at this time. Related Data Home Medications ?Medication ?Instructions ?Recorded ?Confirmed aspirin 81 mg tablet,delayed 81 mg PO DAILY 08/15/22 06/22/24 release cyanocobalamin (vitamin B-12) 1,000 mcg PO DAILY 08/15/22 06/22/24 1,000 mcg tablet gabapentin 300 mg capsule 300 mg PO QID 08/15/22 06/22/24 alprazolam 0.5 mg tablet 0.5 mg PO TID anxiety 07/01/23 06/22/24 topiramate 25 mg tablet 25 mg PO 06/22/24 06/22/24 Previous Rx's ?Medication ?Instructions ?Recorded amlodipine 10 mg tablet See Rx Instructions .Route 04/17/24 .COMPLEX #90 tabs metoprolol succinate 200 mg See Rx Instructions .Route 04/17/24 tablet,extended release 24 hr .COMPLEX #90 tabs dbzggeavnyhecpp-vnqslhtomypfqtq-LL 10 ml PO Q4-6H PRN cough and 06/22/24 2 mg-30 mg-10 mg/5 mL oral syrup congestion #118 mL (Bromfed DM) Allergies Allergy/AdvReac Type Severity Reaction Status Date / Time alendronate sodium Allergy Unknown CHEST PAIN Verified 06/22/24 09:16 [ALENDRONATE SODIUM] metoclopramide Allergy Unknown Verified 06/22/24 09:16 [METOCLOPRAMIDE] morphine [MORPHINE] Allergy Unknown I-RASH Verified 06/22/24 09:16 [facility] <Neema Pierson MD - Last Filed: 06/24/24 23:15> [facility] Disclaimer: The information contained in this section may have been updated after the patient was seen, as this information can be updated by other users. Medical History History of impacted cerumen Neuropathy Hypertension Surgical History H/O hernia repair History of cholecystectomy Family History Mother Hypertension Coronary artery disease AAA (abdominal aortic aneurysm) Father Hypertension Coronary artery disease Social History Smoking Status: Never smoker alcohol intake: never current occupational status: employed Travel in the last 8 weeks: None housing: house current occupational exposures/hazards: No caffeine: Yes <Neema Pierson MD - Last Filed: 06/24/24 23:15> ROS Obtained: Yes Systems reviewed as appropriate & no additional complaints except as documented Physical Exam <Neema Pierson MD - Last Filed: 06/24/24 23:15> General General appearance: alert and in no apparent distress Head Head exam: atraumatic and normocephalic Eye Eye exam: Present PERRL and EOMI Chest Chest inspection: Present normal inspection and symmetric chest wall rise Respiratory Respiratory exam: Present normal lung sounds bilaterally; Absent respiratory distress Cardiovascular Cardiovascular exam: Present regular rate and normal rhythm Abdominal Exam Abdominal exam: Present soft; Absent tenderness Neurological Exam Neurological exam: Present alert, oriented X3 and other (Sensation and strength intact bilateral upper extremities and lower extremities, normal brdabs-aw-iwfw, able to raise eyebrows, close eyes, smile, stick out tongue and face is symmetric. When asked to repeat phrases she is able to do this though at times has some slurred speech, able to identify ob) Psychiatric Psychiatric exam: Present normal affect Skin Skin exam: Present warm and dry Medical Decision Making <Neema Pierson MD - Last Filed: 06/24/24 23:15> Medical Records Medical records reviewed: Yes I reviewed the patient's medical records. Aj Inquiry Pt receiving controlled substance: No Vital Signs: 06/24/24 21:21 Temperature 98.4 F Temperature Source Oral Pulse Rate [Right Radial] 56 L Respiratory Rate 20 Blood Pressure [Right Arm] 132/71 Blood Pressure Mean [Right Arm] 91 02 Sat by Pulse Oximetry 97 Oxygen Delivery Method Room Air Lab Data Lab results reviewed: Yes I reviewed the patient's lab results. Lab Results 06/24/24 21:40: WBC 4.2 L, RBC 4.21, Hgb 13.0, Hct 41.7, MCV 98.9, MCH 30.9, MCHC 31.3 L, RDW 13.4, Plt Count 269, MPV 8.9, Neut % (Auto) 44.4, Lymph % (Auto) 42.8, Ware % (Auto) 7.9, Eos % (Auto) 3.1, Baso % (Auto) 1.9, Neut # (Auto) 1.9, Lymph # (Auto) 1.8, Ware # (Auto) 0.3, Eos # (Auto) 0.1, Baso # (Auto) 0.1, Sodium 135 L, Potassium 4.0, Chloride 107, Carbon Dioxide 21 L, Anion Gap 11.0, BUN 27 H, Creatinine 1.30 H, Estimated Creat Clear 32, Estimated GFR 39 L, Est GFR ( Amer) 47 L, Glucose 96, Calcium 9.7, Total Bilirubin 0.6, AST 35, ALT 25, Alkaline Phosphatase 72, Troponin I < 0.01, Total Protein 7.5, Albumin 4.4, Globulin 3.1, Albumin/Globulin Ratio 1.4 06/24/24 22:30: Urine Color Yellow, Urine Appearance Clear, Urine pH 5.5, Ur Specific [place] 1.025, Urine Protein Negative, Urine Glucose (UA) Negative, Urine Ketones Negative, Urine Blood Negative, Urine Nitrate Negative, Urine Bilirubin Negative, Urine Urobilinogen 0.2, Ur Leukocyte Esterase Negative, Urine RBC Occasional, Urine WBC Occasional, Ur Squamous Epith Cells 5-10, Amorphous Sediment 4+, Urine Bacteria 2+, Urine Mucus 1+, Urine Opiates Screen Negative, Urine Methadone Screen Negative, Ur Barbituates Screen Negative, Ur Phencyclidine Scrn Negative, Ur Amphetamines Screen Negative, U Benzodiazepines Scrn Positive H, Urine Cocaine Screen Negative, U Marijuana (THC) Screen Negative 06/24/24 21:40 06/24/24 21:40 Orders (Tests/Meds): ED MEDICATIONS Generic Name Dose Route Start Last Admin Trade Name Freq PRN Reason Stop Dose Admin Sodium Chloride 10 ml 06/24/24 21:56 Sodium Chloride 0.9% 10ml Flush Syringe IV 07/24/24 21:55 NEEDED PRN Maintain IV Site Discontinued Medications Generic Name Dose Route Start Last Admin Trade Name Yinka PRN Reason Stop Dose Admin Sodium Chloride 1,000 mls @ 999 mls/hr 06/24/24 22:36 06/24/24 22:45 Sod Chlor 0.9% 1000ml Bag IV 06/24/24 23:36 999 mls/hr .Q1H1M ONE Administration ORDERS Category Date Time Status CT head/brain wo con Stat Cat Scan 06/24/24 21:43 Completed CBC w/Auto Diff [Complete Blood Count Auto Diff] Stat Lab 06/24/24 21:40 Completed CMP [Comprehensive Metabolic Panel] Stat Lab 06/24/24 21:40 Completed Drug Screen,Urine Stat Lab 06/24/24 22:30 Completed Trop I [Troponin I] Stat Lab 06/24/24 21:40 Completed Urinalysis and Microscopic Stat Lab 06/24/24 22:30 Completed Urine Culture Stat Micro 06/24/24 22:30 Received EKG Request [ECG Request] Stat Y 06/24/24 21:42 Ordered Medical Decision Narrative: Patient is an 83-year-old female with past medical history hypertension, essential tremor, trigeminal neuralgia presenting with concern for possible overdose. They note that for the past 2 days she has been more sleepy and she sounds like she is drunk from daughters at bedside who bring her in. They state that her family who lives with her noted that she was more sleepy today which is not usual for her. They also note that she had been taking what she thought was cold medicine but was the refill from her Xanax since Saturday and were concerned that she is doubling her dose. She has no history of stroke and is hemodynamically stable on presentation, she is alert and oriented and exam is overall unremarkable except for some slurred speech occasionally especially with repeating phrases such as 50-50. However given history and exam that is otherwise without neurologic deficit feel low concern and risk for CVA at this time and will obtain basic blood work and observe at this time as well as obtain CT brain. CBC nonactionable, CMP with creatinine of 1.3 which is slightly elevated from normal and given 1 L normal saline, troponin negative, UA noninfectious, UDS is positive only for benzos. CT brain pending at time of signout and also will reevaluate patient for improvement in her mentation. Patient and daughters at bedside agreeable with plan. <Milton Magaña MD - Last Filed: 06/24/24 23:41> Vital Signs: 06/24/24 21:21 Temperature 98.4 F Temperature Source Oral Pulse Rate [Right Radial] 56 L Respiratory Rate 20 Blood Pressure [Right Arm] 132/71 Blood Pressure Mean [Right Arm] 91 02 Sat by Pulse Oximetry 97 Oxygen Delivery Method Room Air Lab Data Lab Results 06/24/24 21:40: WBC 4.2 L, RBC 4.21, Hgb 13.0, Hct 41.7, MCV 98.9, MCH 30.9, MCHC 31.3 L, RDW 13.4, Plt Count 269, MPV 8.9, Neut % (Auto) 44.4, Lymph % (Auto) 42.8, Ware % (Auto) 7.9, Eos % (Auto) 3.1, Baso % (Auto) 1.9, Neut # (Auto) 1.9, Lymph # (Auto) 1.8, Ware # (Auto) 0.3, Eos # (Auto) 0.1, Baso # (Auto) 0.1, Sodium 135 L, Potassium 4.0, Chloride 107, Carbon Dioxide 21 L, Anion Gap 11.0, BUN 27 H, Creatinine 1.30 H, Estimated Creat Clear 32, Estimated GFR 39 L, Est GFR ( Amer) 47 L, Glucose 96, Calcium 9.7, Total Bilirubin 0.6, AST 35, ALT 25, Alkaline Phosphatase 72, Troponin I < 0.01, Total Protein 7.5, Albumin 4.4, Globulin 3.1, Albumin/Globulin Ratio 1.4 06/24/24 22:30: Urine Color Yellow, Urine Appearance Clear, Urine pH 5.5, Ur Specific [place] 1.025, Urine Protein Negative, Urine Glucose (UA) Negative, Urine Ketones Negative, Urine Blood Negative, Urine Nitrate Negative, Urine Bilirubin Negative, Urine Urobilinogen 0.2, Ur Leukocyte Esterase Negative, Urine RBC Occasional, Urine WBC Occasional, Ur Squamous Epith Cells 5-10, Amorphous Sediment 4+, Urine Bacteria 2+, Urine Mucus 1+, Urine Opiates Screen Negative, Urine Methadone Screen Negative, Ur Barbituates Screen Negative, Ur Phencyclidine Scrn Negative, Ur Amphetamines Screen Negative, U Benzodiazepines Scrn Positive H, Urine Cocaine Screen Negative, U Marijuana (THC) Screen Negative Orders (Tests/Meds): ED MEDICATIONS Generic Name Dose Route Start Last Admin Trade Name Freq PRN Reason Stop Dose Admin Sodium Chloride 10 ml 06/24/24 21:56 Sodium Chloride 0.9% 10ml Flush Syringe IV 07/24/24 21:55 NEEDED PRN Maintain IV Site Discontinued Medications Generic Name Dose Route Start Last Admin Trade Name Freq PRN Reason Stop Dose Admin Sodium Chloride 1,000 mls @ 999 mls/hr 06/24/24 22:36 06/24/24 22:45 Sod Chlor 0.9% 1000ml Bag IV 06/24/24 23:36 999 mls/hr .Q1H1M ONE Administration ORDERS Category Date Time Status CT head/brain wo con Stat Cat Scan 06/24/24 21:43 Completed CBC w/Auto Diff [Complete Blood Count Auto Diff] Stat Lab 06/24/24 21:40 Completed CMP [Comprehensive Metabolic Panel] Stat Lab 06/24/24 21:40 Completed Drug Screen,Urine Stat Lab 06/24/24 22:30 Completed Trop I [Troponin I] Stat Lab 06/24/24 21:40 Completed Urinalysis and Microscopic Stat Lab 06/24/24 22:30 Completed Urine Culture Stat Micro 06/24/24 22:30 Received EKG Request [ECG Request] Stat Y 06/24/24 21:42 Ordered Medical Decision Narrative: Patient is an 83-year-old female with past medical history hypertension, essential tremor, trigeminal neuralgia presenting with concern for possible overdose. They note that for the past 2 days she has been more sleepy and she sounds like she is drunk from daughters at bedside who bring her in. They state that her family who lives with her noted that she was more sleepy today which is not usual for her. They also note that she had been taking what she thought was cold medicine but was the refill from her Xanax since Saturday and were concerned that she is doubling her dose. She has no history of stroke and is hemodynamically stable on presentation, she is alert and oriented and exam is overall unremarkable except for some slurred speech occasionally especially with repeating phrases such as 50-50. However given history and exam that is otherwise without neurologic deficit feel low concern and risk for CVA at this time and will obtain basic blood work and observe at this time as well as obtain CT brain. CBC nonactionable, CMP with creatinine of 1.3 which is slightly elevated from normal and given 1 L normal saline, troponin negative, UA noninfectious, UDS is positive only for benzos. CT brain pending at time of signout and also will reevaluate patient for improvement in her mentation. Patient and daughters at bedside agreeable with plan. Magaña: Upon my assumption of care patient is stable, GCS 15, no localizing neurologic deficits. Her speech is slightly clearer than was reported on arrival, family also reports it is improving and not as slurred. On further discussion with patient's daughters at bedside, they report that patient has been taking her Xanax in double doses since saturday. Reportedly when patient went to the pharmacy to slate picker medications from her PCP she thought she was picking up an antibiotic plus other medications, however she did not realize one of the medications that she had picked up was her refilled Xanax. Patient is typically prescribed Xanax 0.5 mg 3 times daily. She has been on this medication for years for tremor according to her family. Since Saturday when she picked up these medications, she has been taking a double dose of the Xanax, 1 mg, 3 times daily. Since that time she has become progressively more sleepy until she was experiencing the symptoms that caused her family to bring her to the ER today. I reviewed labs and imaging performed by Dr. Pierson and agree with her assessment and plan so far. CT head personally interpreted does not demonstrate acute intracranial abnormality, see radiology read for final interpretation. Patient has made slight improvements in her speech on reassessment, however she has not returned to her baseline. Patient ambulated to the restroom requiring a two-person assist, normally she is independent. She continues to be somewhat unsteady on her feet and is not back to baseline so I believe she requires admission for continued metabolization of her accidental overdose as well as treatment of her AUDREY. I discussed this with the patient and family and they are in agreement with this plan. Discussed the case with the hospitalist including findings of elevated creatinine and concern for multiple days of double dosing her Xanax causing her presenting symptoms today. Patient accepted by the hospitalist for admission. Critical Care <Neema Pierson MD - Last Filed: 06/24/24 23:15> Critical Care Time Critical Care Time: No
[2024-06-24 22:13] LABS: Chloride 107 mmol/L (98-107)
[2024-06-24 22:14] LABS: Albumin Level 4.4 g/dl (3.5-5.0); Sodium 135 mmol/L (136-145)
[2024-06-24 22:16] LABS: Alanine Aminotransferase 25 U/L (12-78); Aspartate Amino Transferase 35 U/L (14-36); Blood Urea Nitrogen 27 mg/dl (7-17); Creatinine Clearance Estimated 32 mL/min (50-200); Estimated Glomerular Filt Rate 39 ml/min (>60); GFR (African American) 47 ML/MIN (>60)
[2024-06-24 22:17] LABS: Albumin/Globulin Ratio 1.4 (1.1-1.8); Alkaline Phosphatase 72 U/L (38-126); Bilirubin,Total 0.6 mg/dl (0.2-1.3); Calcium 9.7 mg/dl (8.4-10.2); Carbon Dioxide 21 mmol/L (22.0-30.0); Globulin 3.1 g/dL (1.3-3.2); Glucose 96 mg/dl (74-100); Total Protein,Serum 7.5 g/dl (6.3-8.2)
[2024-06-24 22:29] LABS: Troponin I < 0.01 ng/ml (0.00-0.034)
[2024-06-24 22:39] LABS: Appearance,Urine CLEAR (Clear); Bilirubin,Urine Negative (Negative); Blood, Urine Negative (Negative); Color,Urine YELLOW (Yellow); Glucose,Urine (UA) Negative (Negative); Ketones,Urine Negative (Negative); Leukocyte Esterase,Urine Negative (Negative); Microscopic, Urine URINE MICROSCOPIC (MICROSCOPIC); Nitrate,Urine Negative (Negative); PH,Urine 5.5 (5.0-8.5); Protein,Urine Negative (Negative); Specific Gravity, Urine 1.025 (1.005-1.030); Urobilinogen,Urine 0.2 EU/dl (0.2)
[2024-06-24] MEDS: 0.9 % SODIUM CHLORIDE 1000ML 1,000 ML 999 ML IV (22:45)
[2024-06-24 22:52] LABS: Amorphous Sediment,Urine 4+ /lpf; Bacteria,Urine 2+ /lpf; RBC,Urine Occasional #/hpf (0-3); WBC,Urine Occasional #/hpf (0-3)
[2024-06-24 22:53] LABS: Amphetamine/Metha Screen,Urine Negative ng/ml (<1000); Mucus,Urine 1+ /lpf
[2024-06-24 22:54] LABS: Barbiturates Screen,Urine Negative ng/ml (<200); Benzodiazepines Screen,Urine Positive ng/ml (<200)
[2024-06-24 22:55] LABS: Cannabinoid Screen,Urine Negative ng/ml (<50)
[2024-06-24 22:56] LABS: Cocaine Screen,Urine Negative ng/ml (<300); Methadone Screen,Urine Negative ng/ml (<300)
[2024-06-24 22:57] LABS: Opiate Screen,Urine Negative ng/ml (<300)
[2024-06-24 22:58] LABS: Phencyclidine Screen,Urine Negative ng/ml (<25)
[2024-06-24 23:00] VITALS: BP 135/65; PULSE 61; RESP 16; O2SAT 94
--- NOTE | 2024-06-24 23:42 | EXP.HP ---
History of Present Illness *Admission Date: 06/24/24 *Reason for visit:: accidental OD *History of present illness: This is a 83-year-old female with PMHx trigeminal neuralgia, essential tremor, hypertension presenting with concern for unintentional benzodiazepine overdose. Her family notes that she was seen for an upper respiratory illness by her PCP on Saturday and she had thought that he prescribed her something for her cold but when they found her medications they found a new dose of Xanax and she also takes gabapentin for her tremors and trigeminal neuralgia. They note that she is acting drunk and had been very sleepy for the past 2 days and they believe that she has been doubling her dose of Xanax. They were concerned with leaving her given their concern for overdose prompting evaluation. Patient herself has no complaints at this time. [facility] Medical History (Updated 06/25/24 @ 13:50 by Gonzalo Carrillo MD) Chronic prescription benzodiazepine use History of impacted cerumen Neuropathy Hypertension Surgical History H/O hernia repair History of cholecystectomy Family History Mother Hypertension Coronary artery disease AAA (abdominal aortic aneurysm) Father Hypertension Coronary artery disease Social History Smoking Status: Never smoker alcohol intake: never current occupational status: employed Travel in the last 8 weeks: None housing: house current occupational exposures/hazards: No caffeine: Yes Review of Systems Review of Systems Review of systems:: pertinent systems reviewed and negative unless documented below Meds Home Medications and Allergies Home Medications ?Medication ?Instructions ?Recorded ?Confirmed ?Type aspirin 81 mg tablet,delayed 81 mg PO DAILY 08/15/22 06/25/24 History release cyanocobalamin (vitamin B-12) 1,000 mcg PO DAILY 08/15/22 06/25/24 History 1,000 mcg tablet gabapentin 300 mg capsule 300 mg PO QID 08/15/22 06/25/24 History alprazolam 0.5 mg tablet 0.5 mg PO TIDP PRN anxiety 07/01/23 06/25/24 History topiramate 25 mg tablet 25 mg PO DIRECTED 06/22/24 06/25/24 History amlodipine 10 mg tablet 10 mg PO DAILY 06/25/24 06/25/24 History metoprolol succinate 200 mg 200 mg PO DAILY 06/25/24 06/25/24 History tablet,extended release 24 hr New Prescriptions to Start Prescriptions: Allergies Allergy/AdvReac Type Severity Reaction Status Date / Time alendronate sodium Allergy Unknown CHEST PAIN Verified 06/22/24 09:16 [ALENDRONATE SODIUM] metoclopramide Allergy Unknown Verified 06/22/24 09:16 [METOCLOPRAMIDE] morphine [MORPHINE] Allergy Unknown I-RASH Verified 06/22/24 09:16 Exam Data for Last 24 hours Vital signs and Labs for Last 24 Hours: Temp Pulse Resp BP Pulse Ox O2 Del Method 98.4 F 56 L 20 132/71 97 Room Air 06/24/24 21:21 06/24/24 21:21 06/24/24 21:21 06/24/24 21:21 06/24/24 21:21 06/24/24 21:21 Laboratory Results - last 24 hr 06/24/24 21:40: WBC 4.2 L, RBC 4.21, Hgb 13.0, Hct 41.7, MCV 98.9, MCH 30.9, MCHC 31.3 L, RDW 13.4, Plt Count 269, MPV 8.9, Neut % (Auto) 44.4, Lymph % (Auto) 42.8, [place] % (Auto) 7.9, Eos % (Auto) 3.1, Baso % (Auto) 1.9, Neut # (Auto) 1.9, Lymph # (Auto) 1.8, [place] # (Auto) 0.3, Eos # (Auto) 0.1, Baso # (Auto) 0.1, Sodium 135 L, Potassium 4.0, Chloride 107, Carbon Dioxide 21 L, Anion Gap 11.0, BUN 27 H, Creatinine 1.30 H, Estimated Creat Clear 32, Estimated GFR 39 L, Est GFR ( Amer) 47 L, Glucose 96, Calcium 9.7, Total Bilirubin 0.6, AST 35, ALT 25, Alkaline Phosphatase 72, Troponin I < 0.01, Total Protein 7.5, Albumin 4.4, Globulin 3.1, Albumin/Globulin Ratio 1.4 06/24/24 22:30: Urine Color Yellow, Urine Appearance Clear, Urine pH 5.5, Ur Specific [place] 1.025, Urine Protein Negative, Urine Glucose (UA) Negative, Urine Ketones Negative, Urine Blood Negative, Urine Nitrate Negative, Urine Bilirubin Negative, Urine Urobilinogen 0.2, Ur Leukocyte Esterase Negative, Urine RBC Occasional, Urine WBC Occasional, Ur Squamous Epith Cells 5-10, Amorphous Sediment 4+, Urine Bacteria 2+, Urine Mucus 1+, Urine Opiates Screen Negative, Urine Methadone Screen Negative, Ur Barbituates Screen Negative, Ur Phencyclidine Scrn Negative, Ur Amphetamines Screen Negative, U Benzodiazepines Scrn Positive H, Urine Cocaine Screen Negative, U Marijuana (THC) Screen Negative I & O for Last 24 hours: Intake & Output 06/21/24 06/22/24 06/23/24 06/24/24 23:59 23:59 23:59 23:59 Weight 61.235 kg Constitutional Constitutional: no acute distress and cooperative *Routine HEENT Exam Head: Present normocephalic Eye: Present EOMI and PERRL ENT: Present mucous membranes moist *Routine Neck Exam Neck: Present supple; Absent lymphadenopathy *Routine Respiratory Exam Respiratory: Present CTA bilaterally, normal respiratory effort and symmetric chest movement *Routine Cardiovascular Exam Cardiovascular: Present RRR *Routine Abdominal Exam Abdominal: Present soft and normoactive bowel sounds; Absent tenderness *Routine Rectal Exam Rectal:: deferred *Routine Genitalia Exam Genitalia:: deferred *Routine Extremities Exam Extremities: Absent cyanosis, clubbing or edema *Routine Skin Exam Skin: Present warm; Absent rash *Routine Neurological Exam Neurological: Present alert, oriented X3, moving all extremities, vision grossly intact, hearing grossly intact and normal speech; Absent sensory deficit or motor deficit Routine Psychiatric Exam Psychiatric: Present normal affect, normal thought process, cooperative, good insight and good judgment H&P: Result Imaging and Cardiology EKG: Status: image reviewed by me and final report CT scan - head: Status: image reviewed by me, Preliminary report and final report Assessment and Plan *Assessment and plan (1) Accidental overdose: Status: Acute Qualifiers: Encounter type: initial encounter Qualified Code(s): T50.901A - Poisoning by unspecified drugs, medicaments and biological substances, accidental (unintentional), initial encounter Category: Medical Code(s): T50.901A - Poisoning by unspecified drugs, medicaments and biological substances, accidental (unintentional), initial encounter (2) AUDREY (acute kidney injury): Status: Acute Category: Medical Code(s): N17.9 - Acute kidney failure, unspecified (3) Hypertension: Status: Acute Qualifiers: Hypertension type: unspecified Qualified Code(s): I10 - Essential (primary) hypertension Category: Medical Code(s): I10 - Essential (primary) hypertension (4) Essential tremor: Status: Acute Category: Medical Code(s): G25.0 - Essential tremor (5) Trigeminal neuralgia of right side of face: Status: Acute Category: Medical Code(s): G50.0 - Trigeminal neuralgia Plan 83-year-old female with PMHx trigeminal neuralgia, essential tremor, hypertension presenting with concern for unintentional benzodiazepine overdose. On arrival, patient is alert and oriented and exam is overall unremarkable except for some slurred speech occasionally especially with repeating phrases such as 50-50. CT of the head id negative for acute intracreaneal process. CBC nonactionable, CMP with creatinine of 1.3 which is slightly elevated from normal and given 1 L normal saline, troponin negative, UA noninfectious, UDS is positive only for benzos. Discussed with ED for admission and inpatient monitoring, after reevaluation and fluid resuscitation, patient improved mentation but unable to achieve safe acting. Plan as follow: Accidental benzodiazepine overdose. Patient has been doubling her dose: Acute kidney injury, associated hyponatremia Admit patient for inpatient monitoring dispo MedSurg Continue gentle IV hydration Fall precaution in place Continue cardiac monitoring UA pending Repeat daily lab Caution with nephrotoxic medication. Monitor renal output Encourage increasing p.o. intake Hold gabapentin and Xanax and topiramate in the setting of acute kidney and benzodiazepine overdose May need PT OT for eval when mentation improved -History of hypertension On amlodipine and metoprolol. Resumed Lovenox for DVT prophylaxis. Protonix for GI bleed protection Full code Regular diet
--- NOTE | 2024-06-24 23:52 | PC.NURSE ---
Report called to Parvin RICK
--- NOTE | 2024-06-24 23:59 | PC.NURSE ---
At [id number] received report from Francisca Santiago RN/ED nurse. Patient is an 83 yo female accidental O.D. xanax.
[2024-06-25] VITALS: BP 131/72; PULSE 56; PULSE 59; RESP 16; TEMP 36.7; O2SAT 95
[2024-06-25 00:06] VITALS: BP 131/72; PULSE 59; RESP 14; TEMP 36.9; O2SAT 93
[2024-06-25] MEDS: 0.9 % SODIUM CHLORIDE 1000ML 1,000 ML 50 ML IV (00:34)
--- NOTE | 2024-06-25 00:41 | PC.NURSE ---
Arrived to the floor from the ED at 0010 per W/C.
[2024-06-25 00:42] VITALS: O2SAT 94
[2024-06-25 04:00] VITALS: BP 129/72; PULSE 56; PULSE 58; RESP 14; TEMP 36.4; O2SAT 96; BMI 23.6
--- NOTE | 2024-06-25 04:44 | PC.NURSE ---
Patient has rested well. No c/o pain. Vital signs stable/afebrile.
[2024-06-25 06:42] LABS: Alanine Aminotransferase 24 U/L (12-78); Albumin Level 3.7 g/dl (3.5-5.0); Albumin/Globulin Ratio 1.2 (1.1-1.8); Alkaline Phosphatase 65 U/L (38-126); Anion Gap 8.6 mEq/L (5-15); Aspartate Amino Transferase 27 U/L (14-36); Bilirubin,Total 0.6 mg/dl (0.2-1.3); Blood Urea Nitrogen 19 mg/dl (7-17); Calcium 9.1 mg/dl (8.4-10.2); Carbon Dioxide 20 mmol/L (22.0-30.0); Chloride 113 mmol/L (98-107); Creatinine Clearance Estimated 43 mL/min (50-200); Estimated Glomerular Filt Rate 80 ml/min (>60); GFR (African American) 97 ML/MIN (>60); Globulin 3.1 g/dL (1.3-3.2); Glucose 87 mg/dl (74-100); Potassium 3.6 mmoL/L (3.5-5.1); Sodium 138 mmol/L (136-145); Total Protein,Serum 6.8 g/dl (6.3-8.2)
[2024-06-25 06:54] LABS: Basophils # 0.1 K/mm3 (0-0.2); Basophils % 1.6 % (0.1-2.0); Eosinophils # 0.1 K/mm3 (0.0-0.4); Eosinophils % 3.1 % (0.1-12.0); Hematocrit 41.6 % (37.0-47.0); Lymphocytes # 1.6 K/mm3 (0.7-4.5); Lymphocytes % 38.8 % (10-50); Mean Corpuscular HGB Conc 31.2 g/dL (31.8-35.4); Mean Corpuscular Hemoglobin 30.6 pg (27.0-31.2); Mean Corpuscular Volume 98.1 fl (81-99); Mean Platelet Volume 8.8 fl (7.4-10.4); Monocytes # 0.3 K/mm3 (0.1-1.0); Monocytes % 8.2 % (1.7-9.3); Neutrophils # 1.9 K/mm3 (1.8-7.8); Neutrophils % 48.3 % (37.0-80.0); Platelet Count 248 K/mm3 (142-424); Red Blood Count 4.24 M/mm3 (4.20-5.40); Red Cell Distribution Width 13.8 % (11.5-17.5)
[2024-06-25 08:00] VITALS: BP 122/70; PULSE 50; PULSE 58; RESP 16; TEMP 36.5; O2SAT 96
--- NOTE | 2024-06-25 08:45 | PC.NURSE ---
pt refused all of morning medications d/t insurance not paying for them . charge nurse and hospitalist made aware.
--- NOTE | 2024-06-25 13:51 | P.DS_ITS ---
General Admission date:: 06/25/24 Discharge date: 06/25/24 HPI HPI HPI: This is a 83-year-old female with PMHx trigeminal neuralgia, essential tremor, hypertension presenting with concern for unintentional benzodiazepine overdose. Her family notes that she was seen for an upper respiratory illness by her PCP on Saturday and she had thought that he prescribed her something for her cold but when they found her medications they found a new dose of Xanax and she also takes gabapentin for her tremors and trigeminal neuralgia. They note that she is acting drunk and had been very sleepy for the past 2 days and they believe that she has been doubling her dose of Xanax. They were concerned with leaving her given their concern for overdose prompting evaluation. Patient herself has no complaints at this time. Hospital Course Hospital Course Hospital Course: The patient was admitted to the telemetry unit with routine nursing interaction. Imaging, labs and inflammatory markers were assessed and renal function reevaluated with normal results. Telemetry identified no dysrhythmias. Her family remained at bedside. She identified improvement and requested to be discharged home. On day of discharge she is accompanied by her 2 daughters and I am accompanied by the multidisciplinary staff including nursing, pharmacy and case management. She plans to follow-up with her PCP next week and neurology to review her medications and discuss her hospital experience. We discussed fall precautions and education was provided. She is still actively employed at the [employer] and requested a work excuse until Saturday. I spent 35 minutes in [id number] time with the patient, daughters at bedside and nursing staff concerning the discharge process. We discussed the admitting diagnoses and hospital course. We discussed identified improvement and the patient's desire to be discharged. We reviewed inpatient studies and imaging. The patient voiced understanding on the importance of follow-up with her primary care provider and neurologist. The patient plans to be compliant with the medication regimen prescribed and follow-up appointments. She understands that she can return to the emergency department with any sudden changes or concerns. Exam Data for Last 24 hours Vital signs and Labs for Last 24 Hours: Temp Pulse Resp BP Pulse Ox O2 Del Method 97.7 F 58 L 16 122/70 96 Room Air 06/25/24 08:00 06/25/24 08:00 06/25/24 08:00 06/25/24 08:00 06/25/24 08:00 06/25/24 13:00 Laboratory Results - last 24 hr 06/24/24 21:40: WBC 4.2 L, RBC 4.21, Hgb 13.0, Hct 41.7, MCV 98.9, MCH 30.9, MCHC 31.3 L, RDW 13.4, Plt Count 269, MPV 8.9, Neut % (Auto) 44.4, Lymph % (Auto ) 42.8, [place] % (Auto) 7.9, Eos % (Auto) 3.1, Baso % (Auto) 1.9, Neut # (Auto) 1.9, Lymph # (Auto) 1.8, [place] # (Auto) 0.3, Eos # (Auto) 0.1, Baso # (Auto) 0.1, Sodium 135 L, Potassium 4.0, Chloride 107, Carbon Dioxide 21 L, Anion Gap 11.0, BUN 27 H, Creatinine 1.30 H, Estimated Creat Clear 32, Estimated GFR 39 L, Est GFR ( Amer) 47 L, Glucose 96, Calcium 9.7, Total Bilirubin 0.6, AST 35, ALT 25, Alkaline Phosphatase 72, Troponin I < 0.01, Total Protein 7.5, Albumin 4.4, Globulin 3.1, Albumin/Globulin Ratio 1.4 06/24/24 22:30: Urine Color Yellow, Urine Appearance Clear, Urine pH 5.5, Ur Specific [place] 1.025, Urine Protein Negative, Urine Glucose (UA) Negative, Urine Ketones Negative, Urine Blood Negative, Urine Nitrate Negative, Urine Bilirubin Negative, Urine Urobilinogen 0.2, Ur Leukocyte Esterase Negative, Urine RBC Occasional, Urine WBC Occasional, Ur Squamous Epith Cells 5-10, Amorphous Sediment 4+, Urine Bacteria 2+, Urine Mucus 1+, Urine Opiates Screen Negative, Urine Methadone Screen Negative, Ur Barbituates Screen Negative, Ur Phencyclidine Scrn Negative, Ur Amphetamines Screen Negative, U Benzodiazepines Scrn Positive H, Urine Cocaine Screen Negative, U Marijuana (THC) Screen Nega tive 06/25/24 05:35: WBC 4.0 L, RBC 4.24, Hgb 13.0, Hct 41.6, MCV 98.1, MCH 30.6, MCHC 31.2 L, RDW 13.8, Plt Count 248, MPV 8.8, Neut % (Auto) 48.3, Lymph % (Auto) 38.8, [place] % (Auto) 8.2, Eos % (Auto) 3.1, Baso % (Auto) 1.6, Neut # (Auto) 1.9, Lymph # (Auto) 1.6, [place] # (Auto) 0.3, Eos # (Auto) 0.1, Baso # (Auto) 0.1, Sodium 138, Potassium 3.6, Chloride 113 H, Carbon Dioxide 20 L, Anion Gap 8.6, BUN 19 H D, Creatinine 0.70 D, Estimated Creat Clear 43, Estimated GFR 80, Est GFR ( Amer) 97 D, Glucose 87, Calcium 9.1, Magnesium 2.0, Total Bilirubin 0.6, AST 27, ALT 24, Alkaline Phosphatase 65, Total Protein 6.8, Albumin 3.7 D, Globulin 3.1, Albumin/Globulin Ratio 1.2 I & O for Last 24 hours: Intake & Output 06/22/24 06/23/24 06/24/24 06/25/24 23:59 23:59 23:59 23:59 Intake Total 573 / 573 Output Total Balance 571 / 571 Weight 61.235 kg 64.183 kg Constitutional Constitutional: no acute distress and cooperative *Routine HEENT Exam Head: Present normocephalic and atraumatic Eye: Present EOMI and PERRL ENT: Present mucous membranes moist *Routine Neck Exam Neck: Present trachea midline; Absent JVD or lymphadenopathy *Routine Respiratory Exam Respiratory: Present CTA bilaterally, normal respiratory effort and symmetric chest movement *Routine Cardiovascular Exam Cardiovascular: Present RRR *Routine Abdominal Exam Abdominal: Present soft and normoactive bowel sounds; Absent tenderness *Routine Extremities Exam Extremities: Present full ROM; Absent edema *Routine Skin Exam Skin: Present intact; Absent rash *Routine Neurological Exam Neurological: Present alert, oriented X3, sensory deficit, motor deficit, moving all extremities, vision grossly intact, hearing grossly intact and normal speech Routine Psychiatric Exam Psychiatric: Present normal affect, normal thought process, cooperative, good insight and good judgment Results Data Completed and Pending Labs on day of discharge: Labs from last 24 hours 06/25/24 06/24/24 06/24/24 05:35 22:30 21:40 WBC 4.0 L 4.2 L RBC 4.24 4.21 Hgb 13.0 13.0 Hct 41.6 41.7 MCV 98.1 98.9 MCH 30.6 30.9 MCHC 31.2 L 31.3 L RDW 13.8 13.4 Plt Count 248 269 MPV 8.8 8.9 Neut % (Auto) 48.3 44.4 Lymph % (Auto) 38.8 42.8 [place] % (Auto) 8.2 7.9 Eos % (Auto) 3.1 3.1 Baso % (Auto) 1.6 1.9 Neut # (Auto) 1.9 1.9 Lymph # (Auto) 1.6 1.8 [place] # (Auto) 0.3 0.3 Eos # (Auto) 0.1 0.1 Baso # (Auto) 0.1 0.1 Sodium 138 135 L Potassium 3.6 4.0 Chloride 113 H 107 Carbon Dioxide 20 L 21 L Anion Gap 8.6 11.0 BUN 19 H D 27 H Creatinine 0.70 D 1.30 H Estimated Creat Clear 43 32 Estimated GFR 80 39 L Est GFR ( Amer) 97 D 47 L Glucose 87 96 Calcium 9.1 9.7 Magnesium 2.0 Total Bilirubin 0.6 0.6 AST 27 35 ALT 24 25 Alkaline Phosphatase 65 72 Troponin I < 0.01 Total Protein 6.8 7.5 Albumin 3.7 D 4.4 Globulin 3.1 3.1 Albumin/Globulin Ratio 1.2 1.4 Urine Color Yellow Urine Appearance Clear Urine pH 5.5 Ur Specific [place] 1.025 Urine Protein Negative Urine Glucose (UA) Negative Urine Ketones Negative Urine Blood Negative Urine Nitrate Negative Urine Bilirubin Negative Urine Urobilinogen 0.2 Ur Leukocyte Esterase Negative Urine RBC Occasional Urine WBC Occasional Ur Squamous Epith Cells 5-10 Amorphous Sediment 4+ Urine Bacteria 2+ Urine Mucus 1+ Urine Opiates Screen Negative Urine Methadone Screen Negative Ur Barbituates Screen Negative Ur Phencyclidine Scrn Negative Ur Amphetamines Screen Negative U Benzodiazepines Scrn Positive H Urine Cocaine Screen Negative U Marijuana (THC) Screen Negative DS: Diagnosis Discharge Diagnosis (1) Accidental overdose: Status: Acute Code(s): T50.901A - Poisoning by unspecified drugs, medicaments and biological substances, accidental (unintentional), initial encounter Qualifiers: Encounter type: initial encounter Qualified Code(s): T50.901A - Poisoning by unspecified drugs, medicaments and biological substances, accident al (unintentional), initial encounter (2) AUDREY (acute kidney injury): Status: Acute Code(s): N17.9 - Acute kidney failure, unspecified (3) Hypertension: Status: Acute Code(s): I10 - Essential (primary) hypertension Qualifiers: Hypertension type: unspecified Qualified Code(s): I10 - Essential (primary) hypertension (4) Essential tremor: Status: Acute Code(s): G25.0 - Essential tremor (5) Trigeminal neuralgia of right side of face: Status: Acute Code(s): G50.0 - Trigeminal neuralgia Meds Home Medications and Allergies Home Medications ?Medication ?Instructions ?Recorded ?Confirmed ?Type aspirin 81 mg tablet,delayed 81 mg PO DAILY 08/15/22 06/25/24 History release cyanocobalamin (vitamin B-12) 1,000 mcg PO DAILY 08/15/22 06/25/24 History 1,000 mcg tablet gabapentin 300 mg capsule 300 mg PO QID 08/15/22 06/25/24 History alprazolam 0.5 mg tablet 0.5 mg PO TIDP PRN anxiety 07/01/23 06/25/24 History topiramate 25 mg tablet 25 mg PO DIRECTED 06/22/24 06/25/24 History amlodipine 10 mg tablet 10 mg PO DAILY 06/25/24 06/25/24 History metoprolol succinate 200 mg 200 mg PO DAILY 06/25/24 06/25/24 History tablet,extended release 24 hr New Prescriptions to Start Prescriptions: Allergies Allergy/AdvReac Type Severity Reaction Status Date / Time alendronate sodium Allergy Unknown CHEST PAIN Verified 06/22/24 09:16 [ALENDRONATE SODIUM] metoclopramide Allergy Unknown Verified 06/22/24 09:16 [METOCLOPRAMIDE] morphine [MORPHINE] Allergy Unknown I-RASH Verified 06/22/24 09:16 Discharge Plan Disposition Patient Disposition: Home, Self-Care Condition: Fair Follow up Plan Follow up with: Andrey Lincoln [Referring] - 2 weeks Tommie Alcaraz MD [Primary Care Provider] - 1 week Prescriptions/Medication Reconciliation: Continued gabapentin 300 mg capsule 300 mg PO QID cyanocobalamin (vitamin B-12) 1,000 mcg tablet 1,000 mcg PO DAILY aspirin 81 mg tablet,delayed release (DR/EC) 81 mg PO DAILY alprazolam 0.5 mg tablet 0.5 mg PO TIDP PRN (Reason: anxiety) topiramate 25 mg tablet 25 mg PO DIRECTED Rx Instructions: week 1- take 25mg at bedtime (starting 06/17/24) week 2- take 50mg at bedtime week 3- take 75mg at bedtime week 4- take 100mg at bedtime metoprolol succinate 200 mg tablet extended release 24 hr 200 mg PO DAILY amlodipine 10 mg tablet 10 mg PO DAILY Rx Instructions: TAKE 1 TABLET BY MOUTH ONCE DAILY Discontinued [id number] [Bromfed DM] 2-30-10 mg/5 mL syrup 10 ml PO Q4-6H PRN (Reason: cough and congestion) Qty: 118 3RF Problem Reconciliation Problems Reviewed?: Yes Patient Discharge Instructions ACTIVITY: Ambulate as tolerated DIET: advance to your usual diet Patient Instructions: DI for Altered Mental Status Print Language: Swazi Providers Primary Care Provider: Tommie Alcaraz Admit Provider: oGnzalo Carrillo Attending Provider: Gonzalo Carrillo
--- NOTE | 2024-06-26 15:27 | CARE MANAGER ---
Called and spoke with patient regarding recent discharge. Patient stated that she is doing well, has started all new medication prescribed at discharge and was aware of scheduled f/u appts. No concerns voiced at time of call.
== END 2024-06-25 14:39 | disposition home or self-care (01) ==
LOC: ER 23:39 → 2ND 23:56
PROVIDERS: Nurse Practitioner Family; Admitting Provider Family Medicine; Emergency Provider Emergency Medicine; PCP Family Medicine; Visit Provider Family Medicine
DX: T50.901A Poisoning by unspecified drugs, medicaments and biological substances, accidental (unintentional), initial encounter (principal); N17.9 Acute kidney failure, unspecified; E87.1 Hypo-osmolality and hyponatremia; I10 Essential (primary) hypertension; G25.0 Essential tremor; G50.0 Trigeminal neuralgia; Z79.899 Other long term (current) drug therapy
CPT/HCPCS: 36415; 70450; 80053; 80307; 81001; 83735; 84484; 85025; 87086; 87088; 99285; G0378; J7030

== ENCOUNTER 2024-07-07 16:21 | Outpatient (CLI) | payer MEDICARE, OTHER, SELFPAY ==
[2024-07-07 16:26] LABS: Albumin Level 4.2 g/dl (3.5-5.0); Chloride 108 mmol/L (98-107); Potassium 4.3 mmoL/L (3.5-5.1); Sodium 138 mmol/L (136-145)
[2024-07-07 16:29] LABS: Alanine Aminotransferase 17 U/L (12-78); Albumin/Globulin Ratio 1.6 (1.1-1.8); Alkaline Phosphatase 64 U/L (38-126); Anion Gap 7.3 mEq/L (5-15); Aspartate Amino Transferase 27 U/L (14-36); Bilirubin,Total 0.7 mg/dl (0.2-1.3); Blood Urea Nitrogen 19 mg/dl (7-17); Carbon Dioxide 27 mmol/L (22.0-30.0); Estimated Glomerular Filt Rate 80 ml/min (>60); GFR (African American) 97 ML/MIN (>60); Globulin 2.7 g/dL (1.3-3.2); Total Protein,Serum 6.9 g/dl (6.3-8.2)
[2024-07-07 16:30] LABS: Calcium 10.1 mg/dl (8.4-10.2); Glucose 86 mg/dl (74-100)
[2024-07-07 16:36] LABS: Hematocrit 37.5 % (37.0-47.0); Lymphocytes % 30.8 % (10-50); Mean Corpuscular HGB Conc 32.1 g/dL (31.8-35.4); Mean Corpuscular Hemoglobin 32.1 pg (27.0-31.2); Mean Corpuscular Volume 100.1 fl (81-99); Monocytes % 8.4 % (1.7-9.3); Neutrophils % 51.2 % (37.0-80.0); Platelet Count 262 K/mm3 (142-424); Red Blood Count 3.74 M/mm3 (4.20-5.40); Red Cell Distribution Width 13.7 % (11.5-17.5); White Blood Count 3.6 K/mm3 (4.8-10.8)
[2024-07-07 16:37] LABS: Basophils # 0.1 K/mm3 (0-0.2); Basophils % 1.8 % (0.1-2.0); Eosinophils # 0.2 K/mm3 (0.0-0.4); Eosinophils % 5.1 % (0.1-12.0); Lymphocytes # 1.1 K/mm3 (0.7-4.5); Monocytes # 0.3 K/mm3 (0.1-1.0); Neutrophils # 1.8 K/mm3 (1.8-7.8)
== END 2024-07-07 23:59 | disposition home or self-care (01) ==
LOC: LAB.DROPOF 16:21
PROVIDERS: PCP Family Medicine; Visit Provider Family Medicine
DX: I10 Essential (primary) hypertension (principal)
CPT/HCPCS: 80053; 85025

== ENCOUNTER 2024-10-26 10:52 | Outpatient (CLI) | payer MEDICARE, OTHER, SELFPAY ==
--- NOTE | 2024-10-26 10:57 | XR_ITS ---
FINAL REPORT CLINICAL HISTORY: hip pain COMPARISON: None FINDINGS: LEFT HIP: 3 views of the left hip demonstrate no acute fracture or dislocation. The joint spaces appear normal. The visualized bony structures are well aligned. No soft tissue abnormality is seen. Note is made of chondrocalcinosis, which can be seen with CPPD. Surgical clips are present in the left inguinal region. IMPRESSION: No acute bony abnormality. Reviewed, Interpreted and Dictated by Daquan Mejia MD Transcribed by Jasmyne Wilson Authenticated and [facility]
--- NOTE | 2024-10-26 10:57 | XR_ITS ---
FINAL REPORT CLINICAL HISTORY: hip pain COMPARISON: None FINDINGS: RIGHT HIP 3 views of the right hip demonstrate no acute fracture or dislocation. The joint spaces appear normal. The visualized bony structures are well aligned. Note is made of chondrocalcinosis, which may be seen with CPPD. IMPRESSION: No acute bony abnormality. Reviewed, Interpreted and Dictated by Daquan Mejia MD Transcribed by Jasmyne Wilson Authenticated and [facility] [place]
== END 2024-10-26 23:59 | disposition home or self-care (01) ==
LOC: RAD 10:54
PROVIDERS: PCP Family Medicine; Visit Provider Family Medicine
DX: M25.551 Pain in right hip (principal); M25.552 Pain in left hip
CPT/HCPCS: 73502

== ENCOUNTER 2025-06-22 10:33 | Outpatient (CLI) | payer MEDICARE, OTHER, SELFPAY ==
[2025-06-22 19:39] LABS: Hematocrit 38.9 % (37.0-47.0); Hemoglobin 13.2 g/dL (12.2-16.2); Immature Granulocytes % 0.3 %; Mean Corpuscular HGB Conc 33.9 g/dL (31.8-35.4); Mean Corpuscular Hemoglobin 30.8 pg (27.0-31.2); Mean Corpuscular Volume 90.7 fl (81-99); Nucleated Red Blood Cells % 0 %; Platelet Count 229 K/mm3 (142-424); Red Blood Count 4.29 M/mm3 (4.20-5.40); Red Cell Distribution Width-SD 44.8 fL; White Blood Count 4.0 K/mm3 (4.8-10.8)
[2025-06-22 20:00] LABS: Albumin Level 4.5 g/dl (3.5-5.0); Chloride 104 mmol/L (98-107)
[2025-06-22 20:01] LABS: Potassium 4.1 mmoL/L (3.5-5.1); Sodium 140 mmol/L (136-145)
[2025-06-22 20:03] LABS: Alanine Aminotransferase 14 U/L (12-78); Anion Gap 14.1 mEq/L (5-15); Aspartate Amino Transferase 25 U/L (14-36); Blood Urea Nitrogen 16 mg/dl (7-17); Carbon Dioxide 26 mmol/L (22.0-30.0); Creatinine,Serum 0.70 mg/dl (0.52-1.04); Estimated Glomerular Filt Rate 80 ml/min (>60); GFR (African American) 96 ML/MIN (>60)
[2025-06-22 20:04] LABS: Albumin/Globulin Ratio 1.7 (1.1-1.8); Alkaline Phosphatase 57 U/L (38-126); Bilirubin,Total 1.0 mg/dl (0.2-1.3); Calcium 10.5 mg/dl (8.4-10.2); Cholesterol 201 mg/dl (140-200); Globulin 2.7 g/dL (1.3-3.2); Glucose 89 mg/dl (74-100); HDL Cholesterol 67 mg/dl (40-60); Total Protein,Serum 7.2 g/dl (6.3-8.2); Triglycerides 113 mg/dl (30-150)
[2025-06-22 20:34] LABS: Thyroid Stimulating Hormone 1.42 uIU/mL (0.465-4.68)
--- OUTSIDE RECORDS SUMMARY | 2025-06-23 09:53 | XMS_ITS | Clinical Summary ---
Author Organization [facility] Address [address] [place] [address] Care Team Providers Care [employer] Name Role Phone Tommie Alcaraz MD Primary Care Provider [phone] Allergies No known active allergies Medications Metoprolol Succinate (TOPROL XL PO) Take by mouth. Active ALPRAZolam (XANAX PO) Take by mouth. Active AmLODIPine Besylate (NORVASC PO) Take by mouth. Active Family History Medical History Relation Name Comments Cancer Father Heart disease Father Heart disease Mother Breast cancer Neg Hx Ovarian cancer Neg Hx Relation Name Status Comments Father Mother Social History Tobacco Use Types Packs/Day Years Used Date Smoking Tobacco: Never Abuse Screen Answer Date Recorded Unsafe at Home or Work/School Not on file Feels Threatened by Someone? Not on file 06/2023 Does Anyone Keep You from Co ntacting Others or Doint Things Outside the Home? Not on file 07/22/2023 Physical Sign of Abuse Present Not on file 1 Housing Stability Answer Date Recorded Current Living Arrangements Not on file 06/2023 Potentially Unsafe Housing Conditions Not on aime e 07/22/2023 Family and Community Support Answer Steven e Recorded Help with Day-to-Day Activities Not on file 07/22/2023 Lonely or Isolated Not on file 07/22/2023 Employment Answer Date Recorded Do you want help finding or keeping work or a nicoals b? Not on file 07/22/2023 Disabilities Answer Date Recorded Concentrating, Remembering, or Making Decisions Difficulty Not on file 07/22/2023 Doing Errands Independently Difficulty Not on fi le 07/22/2023 Education Answer Date Recorded Help with school or training? Not on file Preferred Language Not on file 07/22/2023 Comments No Sex and Gender Information Value Date Recorded Sex Assigned at Not on file Legal Sex Female 10:26 AM EDT Gender Identity Not on file Sexual Orientation Not on file Last Filed Vital Signs Vital Sign Reading Time Taken Comments Blood Pressure - - Pulse 61 03/22/2018 10:58 AM EDT Temperature 36 C (96.8 F) 03/22/2018 10:58 AM EDT Respiratory Rate 16 03/22/2018 10:5 8 AM EDT Oxygen Saturation 98% 03/22/2018 10: 58 AM EDT Inhaled Oxygen Concentration - - Weight 61.1 kg (134 lb 12.8 oz) 018 10:58 AM EDT Height 165.1 cm (5' 5 ) 03/22/2018 10:5 8 AM EDT Body Mass Index 22.43 03/22/2018 10:58 AM EDT Plan of Treatment Health Maintenance Due Date Last Done Comments DXA SCAN 1940 TDAP/TD VACCINES (1 - Tdap) 1959 Pneumococcal Vaccine 50+ (1 of 1 - PCV) 1990 RSV Vaccine - Adults (1 - 1- dose 75+ series) 2015 ZOSTER VACCINE (2 of 3) 09/08/2016 07/14/2016 ANNUAL PHYSICAL 03/22/2018 COVID-19 Vaccine (2024-2 6 season) 2025 07/30/2023, 07/07/2022, 03/27/2022, Additional history exists INFLUENZA VACCINE 07/14/2025 2023, , 06/20/2021, Additional history exists Insurance MEDICARE A & B [facility] Care Teams Detective [employer] Relationship Specialty Start Date End Date Tommie Alcaraz MD PCP - General Family Medicine 10/10/22
--- OUTSIDE RECORDS SUMMARY | 2025-06-23 09:53 | XMS_ITS ---
Author Organization Unknown TREATMENT PLAN Planned Care Start Date Provider Encounter for Check-up [id number] [facility]
== END 2025-06-22 23:59 ==
LOC: LAB.DROPOF 06-23 09:49
PROVIDERS: PCP Family Medicine; Visit Provider Family Medicine
DX: I10 Essential (primary) hypertension (principal); Z11.4 Encounter for screening for human immunodeficiency virus [HIV]
CPT/HCPCS: 80053; 80061; 84443; 85025; 87389